=== PATIENT | male | born 1975 | race African-American/Black ===

== ENCOUNTER 2022-12-25 10:29 | Inpatient (IN) | payer OTHER ==
[2022-12-25 10:48] VITALS: BMI 49.4
[2022-12-25] MEDS ORDERED: BENZOCAINE/MENTHOL (CHLORASEPTIC ) LOZENGE MM PRN (11:07)
[2022-12-25] MEDS ORDERED: MAGNESIUM HYDROX 2400MG/30ML ORAL SUSPENSION 30 ML CUP PO PRN (11:07)
[2022-12-25] MEDS ORDERED: NICOTINE 10 MG CARTRIDGE (INHALER) IH PRN (11:07)
[2022-12-25] MEDS ORDERED: NALOXONE HCL 0.4 MG/ML VIAL IM PRN (11:07)
[2022-12-25] MEDS ORDERED: BISMUTH SUBSALICYLATE 524 MG/30 ML PO PRN (11:07)
[2022-12-25] MEDS ORDERED: NALOXONE HCL (KLOXXADO) 8 MG SPRAY NS PRN (11:07)
[2022-12-25] MEDS ORDERED: guaiFENesin 600 MG TABLET.ER (FP) PO PRN (11:07)
[2022-12-25] MEDS ORDERED: POLYETHYLENE GLYCOL (HEALTHYLAX) 3350 17 GM PACKET PO PRN (11:07)
[2022-12-25] MEDS ORDERED: IBUPROFEN 400 MG TABLET (FP) PO PRN (11:07)
[2022-12-25] MEDS ORDERED: BENZONATATE 200 MG CAPSULE PO PRN (11:07)
[2022-12-25] MEDS ORDERED: ONDANSETRON *ODT* 4 MG TABLET SL PRN (11:07)
[2022-12-25] MEDS ORDERED: LOPERAMIDE HCL 2 MG CAPSULE PO PRN (11:07)
[2022-12-25] MEDS ORDERED: IBUPROFEN 600 MG TABLET (FP) PO PRN (11:07)
[2022-12-25] MEDS ORDERED: DICYCLOMINE HCL 10 MG CAPSULE PO PRN (11:07)
[2022-12-25] MEDS ORDERED: ACETAMINOPHEN 325 MG TABLET (FP) PO PRN (11:07)
[2022-12-25] MEDS ORDERED: MAG HYDROX/AL HYDROX/SIMETH 30 ML UNIT-DOSE CUP PO PRN (11:07)
[2022-12-25] MEDS ORDERED: hydrOXYzine PAMOATE 25 MG CAPSULE (FP) PO ONE (11:58)
[2022-12-25] MEDS: hydrOXYzine PAMOATE 25 MG CAPSULE (FP) PO PRN ×2 (11:59→22:23)
[2022-12-25] MEDS: METHOCARBAMOL 500 MG TABLET PO PRN ×2 (12:46→22:23)
[2022-12-25] MEDS: LOSARTAN POTASSIUM 25 MG TABLET PO SCH (12:46)
[2022-12-25] MEDS: amLODIPine BESYLATE 10 MG TABLET (FP) PO SCH (12:46)
[2022-12-25] MEDS: MELATONIN 5 MG TABLETS PO SCH (22:23)
[2022-12-25] MEDS: THIAMINE HCL 100 MG TABLET (FP) PO SCH (22:24)
[2022-12-26] MEDS: ASPIRIN COATED 81 MG TABLET.EC PO SCH (10:19)
[2022-12-26] MEDS: amLODIPine BESYLATE 10 MG TABLET (FP) PO SCH (10:19)
[2022-12-26] MEDS: PRENATAL VITAMINS W/ FOLIC ACID TABLET (FP) PO SCH (10:19)
[2022-12-26] MEDS: LOSARTAN POTASSIUM 25 MG TABLET PO SCH (10:19)
[2022-12-26] MEDS: METHOCARBAMOL 500 MG TABLET PO PRN ×2 (10:21→22:08)
[2022-12-26] MEDS: hydrOXYzine PAMOATE 25 MG CAPSULE (FP) PO PRN (10:21)
[2022-12-26 11:36] LABS: HEMATOCRIT 39.5 % (35.4-49); HEMOGLOBIN 12.7 GM/dL (11.7-16.9); MCH 28.8 pg (25.7-33.7); MCHC 32.1 g/dl (32.0-35.9); MEAN CELL VOLUME 89.7 fl (80-96); MEAN PLT VOLUME 8.8 fl (7.5-11.1); PLATELET COUNT 326 10^3/uL (134-434); RDW 13.9 % (11.9-15.9); WHITE BLOOD COUNT 4.9 K/mm3 (4.0-10.0)
[2022-12-26 11:44] LABS: POTASSIUM 4.2 mmol/L (3.5-5.1)
[2022-12-26 11:50] LABS: ALBUMIN 3.4 g/dl (3.4-5.0); BLOOD UREA NITROGEN 15.6 mg/dL (7-18); CALCIUM 8.8 mg/dL (8.5-10.1)
[2022-12-26 11:56] LABS: BILIRUBIN,TOTAL 0.3 mg/dL (0.2-1); TOT PROT 6.1 g/dl (6.4-8.2)
[2022-12-26] MEDS ORDERED: LORazepam 1 MG TABLET PO PRN (14:16)
[2022-12-26] MEDS: LORazepam 2 MG TABLET PO SCH ×2 (17:11→22:08)
[2022-12-26] MEDS: THIAMINE HCL 100 MG TABLET (FP) PO SCH (22:08)
[2022-12-26] MEDS: MELATONIN 5 MG TABLETS PO SCH (22:08)
[2022-12-27] MEDS: LORazepam 1 MG TABLET PO SCH ×4 (05:29→22:02)
[2022-12-27] MEDS: amLODIPine BESYLATE 10 MG TABLET (FP) PO SCH (09:09)
[2022-12-27] MEDS: ASPIRIN COATED 81 MG TABLET.EC PO SCH (09:09)
[2022-12-27] MEDS: LOSARTAN POTASSIUM 25 MG TABLET PO SCH (09:09)
[2022-12-27] MEDS: PRENATAL VITAMINS W/ FOLIC ACID TABLET (FP) PO SCH (10:09)
[2022-12-27] MEDS: METHOCARBAMOL 500 MG TABLET PO PRN (10:10)
[2022-12-27] MEDS: MELATONIN 5 MG TABLETS PO SCH (22:02)
[2022-12-27] MEDS: THIAMINE HCL 100 MG TABLET (FP) PO SCH (22:02)
[2022-12-28] MEDS ORDERED: LORazepam 0.5 MG TABLET PO PRN
[2022-12-28] MEDS: LORazepam 0.5 MG TABLET PO SCH ×4 (05:24→23:16)
[2022-12-28] MEDS: ASPIRIN COATED 81 MG TABLET.EC PO SCH (10:04)
[2022-12-28] MEDS: LOSARTAN POTASSIUM 25 MG TABLET PO SCH (10:04)
[2022-12-28] MEDS: amLODIPine BESYLATE 10 MG TABLET (FP) PO SCH (10:05)
[2022-12-28] MEDS: PRENATAL VITAMINS W/ FOLIC ACID TABLET (FP) PO SCH (10:05)
[2022-12-28] MEDS ORDERED: cloNIDine HCL 0.1 MG TABLET PO ONE (13:45)
[2022-12-28] MEDS: MELATONIN 5 MG TABLETS PO SCH (23:16)
[2022-12-28] MEDS: THIAMINE HCL 100 MG TABLET (FP) PO SCH (23:17)
[2022-12-29] MEDS ORDERED: LORazepam 0.5 MG TABLET PO ONE (05:00)
[2022-12-29] MEDS: PRENATAL VITAMINS W/ FOLIC ACID TABLET (FP) PO SCH (10:32)
[2022-12-29] MEDS: ASPIRIN COATED 81 MG TABLET.EC PO SCH (10:32)
[2022-12-29] MEDS: amLODIPine BESYLATE 10 MG TABLET (FP) PO SCH (10:32)
[2022-12-29] MEDS: LOSARTAN POTASSIUM 25 MG TABLET PO SCH (10:32)
[2022-12-29] MEDS: METHOCARBAMOL 500 MG TABLET PO PRN (10:33)
[2022-12-29] MEDS: hydrOXYzine PAMOATE 25 MG CAPSULE (FP) PO PRN (10:33)
[2022-12-29 13:05] VITALS: BP 194/99; PULSE 82; RESP 17; TEMP 98.1
== END 2022-12-29 13:55 | disposition other institution (70) | DRG 774 ==
LOC: YASAS 10:29 → Y6N 12:12
PROVIDERS: ADMIT Allergy & Immunology; ATTEND Surgery
PROC: HZ2ZZZZ Detoxification Services for Substance Abuse Treatment (ICD-10-PCS; principal; 2022-12-25)
DX: F14.20 Cocaine dependence, uncomplicated (principal); F10.230 Alcohol dependence with withdrawal, uncomplicated; F17.210 Nicotine dependence, cigarettes, uncomplicated; E78.5 Hyperlipidemia, unspecified; I10 Essential (primary) hypertension; M54.50 Low back pain, unspecified; G89.29 Other chronic pain; E66.01 Morbid (severe) obesity due to excess calories; Z68.42 Body mass index [BMI] 45.0-49.9, adult; Z86.19 Personal history of other infectious and parasitic diseases
CPT/HCPCS: 36415; 80053; 83036; 85027; 86593; 86780; 87635; 87811

== ENCOUNTER 2022-12-29 14:00 | Inpatient (IN) | payer OTHER ==
[2022-12-29] MEDS ORDERED: METHOCARBAMOL 500 MG TABLET PO PRN (17:49)
[2022-12-29] MEDS ORDERED: NALOXONE HCL (KLOXXADO) 8 MG SPRAY NS PRN (17:49)
[2022-12-29] MEDS ORDERED: MAG HYDROX/AL HYDROX/SIMETH 30 ML UNIT-DOSE CUP PO PRN (17:49)
[2022-12-29] MEDS ORDERED: AMMONIUM LACTATE 12% LOTION 225 GM BOTTLE TP PRN (17:49)
[2022-12-29] MEDS ORDERED: LOPERAMIDE HCL 2 MG CAPSULE PO PRN (17:49)
[2022-12-29] MEDS ORDERED: POLYETHYLENE GLYCOL (HEALTHYLAX) 3350 17 GM PACKET PO PRN (17:49)
[2022-12-29] MEDS ORDERED: NALOXONE HCL 0.4 MG/ML VIAL IVPUSH PRN (17:49)
[2022-12-29] MEDS ORDERED: IBUPROFEN 400 MG TABLET (FP) PO PRN (17:49)
[2022-12-29] MEDS ORDERED: guaiFENesin 600 MG TABLET.ER (FP) PO PRN (17:49)
[2022-12-29] MEDS ORDERED: MAGNESIUM HYDROX 2400MG/30ML ORAL SUSPENSION 30 ML CUP PO PRN (17:49)
[2022-12-29] MEDS ORDERED: BENZONATATE 200 MG CAPSULE PO PRN (17:49)
[2022-12-29] MEDS: THIAMINE HCL 100 MG TABLET (FP) PO SCH (21:41)
[2022-12-29] MEDS: MELATONIN 5 MG TABLETS PO SCH (21:41)
[2022-12-30] MEDS: PRENATAL VITAMINS W/ FOLIC ACID TABLET (FP) PO SCH (09:38)
[2022-12-30] MEDS: LOSARTAN POTASSIUM 25 MG TABLET PO SCH (09:39)
[2022-12-30] MEDS: amLODIPine BESYLATE 10 MG TABLET (FP) PO SCH (09:39)
[2022-12-30] MEDS: ASPIRIN COATED 81 MG TABLET.EC PO SCH (09:39)
[2022-12-30] MEDS: THIAMINE HCL 100 MG TABLET (FP) PO SCH (21:08)
[2022-12-30] MEDS: MELATONIN 5 MG TABLETS PO SCH (21:08)
[2022-12-31] MEDS: ASPIRIN COATED 81 MG TABLET.EC PO SCH (09:42)
[2022-12-31] MEDS: LOSARTAN POTASSIUM 25 MG TABLET PO SCH (09:42)
[2022-12-31] MEDS: PRENATAL VITAMINS W/ FOLIC ACID TABLET (FP) PO SCH (09:42)
[2022-12-31] MEDS: amLODIPine BESYLATE 10 MG TABLET (FP) PO SCH (09:42)
[2022-12-31] MEDS: MELATONIN 5 MG TABLETS PO SCH (21:15)
[2022-12-31] MEDS: THIAMINE HCL 100 MG TABLET (FP) PO SCH (21:16)
[2022-12-31] MEDS ORDERED: traZODone HCL 50 MG TABLET (FP) PO SCH (22:00)
[2023-01-01] MEDS: PRENATAL VITAMINS W/ FOLIC ACID TABLET (FP) PO SCH (09:50)
[2023-01-01] MEDS: amLODIPine BESYLATE 10 MG TABLET (FP) PO SCH (09:50)
[2023-01-01] MEDS: LOSARTAN POTASSIUM 25 MG TABLET PO SCH (09:50)
[2023-01-01] MEDS: ASPIRIN COATED 81 MG TABLET.EC PO SCH (09:50)
[2023-01-01] MEDS: THIAMINE HCL 100 MG TABLET (FP) PO SCH (21:02)
[2023-01-01] MEDS: MELATONIN 5 MG TABLETS PO SCH (21:02)
[2023-01-01] MEDS: traZODone HCL 100 MG TABLET (FP) PO SCH (21:02)
[2023-01-02] MEDS: PRENATAL VITAMINS W/ FOLIC ACID TABLET (FP) PO SCH (09:37)
[2023-01-02] MEDS: LOSARTAN POTASSIUM 25 MG TABLET PO SCH (09:37)
[2023-01-02] MEDS: ASPIRIN COATED 81 MG TABLET.EC PO SCH (09:37)
[2023-01-02] MEDS: amLODIPine BESYLATE 10 MG TABLET (FP) PO SCH (09:37)
[2023-01-02] MEDS: THIAMINE HCL 100 MG TABLET (FP) PO SCH (21:12)
[2023-01-02] MEDS: MELATONIN 5 MG TABLETS PO SCH (21:12)
[2023-01-02] MEDS: traZODone HCL 100 MG TABLET (FP) PO SCH (21:12)
[2023-01-03] MEDS: amLODIPine BESYLATE 10 MG TABLET (FP) PO SCH (09:37)
[2023-01-03] MEDS: LOSARTAN POTASSIUM 25 MG TABLET PO SCH (09:37)
[2023-01-03] MEDS: ASPIRIN COATED 81 MG TABLET.EC PO SCH (09:37)
[2023-01-03] MEDS: PRENATAL VITAMINS W/ FOLIC ACID TABLET (FP) PO SCH (09:37)
[2023-01-03] MEDS: MELATONIN 5 MG TABLETS PO SCH (21:19)
[2023-01-03] MEDS: THIAMINE HCL 100 MG TABLET (FP) PO SCH (21:19)
[2023-01-03] MEDS: traZODone HCL 100 MG TABLET (FP) PO SCH (21:19)
[2023-01-04] MEDS: LOSARTAN POTASSIUM 25 MG TABLET PO SCH (09:55)
[2023-01-04] MEDS: PRENATAL VITAMINS W/ FOLIC ACID TABLET (FP) PO SCH (09:55)
[2023-01-04] MEDS: ASPIRIN COATED 81 MG TABLET.EC PO SCH (09:56)
[2023-01-04] MEDS: amLODIPine BESYLATE 10 MG TABLET (FP) PO SCH (09:56)
[2023-01-04] MEDS: hydrOXYzine PAMOATE 25 MG CAPSULE (FP) PO PRN (19:22)
[2023-01-04] MEDS: MELATONIN 5 MG TABLETS PO SCH (21:18)
[2023-01-04] MEDS: THIAMINE HCL 100 MG TABLET (FP) PO SCH (21:18)
[2023-01-04] MEDS: traZODone HCL 50 MG TABLET (FP) PO SCH (21:18)
[2023-01-04] MEDS ORDERED: LISINOPRIL 10 MG TABLET PO ONE (21:51)
[2023-01-05] MEDS: PRENATAL VITAMINS W/ FOLIC ACID TABLET (FP) PO SCH (09:40)
[2023-01-05] MEDS: amLODIPine BESYLATE 10 MG TABLET (FP) PO SCH (09:40)
[2023-01-05] MEDS: ASPIRIN COATED 81 MG TABLET.EC PO SCH (09:40)
[2023-01-05] MEDS: LOSARTAN POTASSIUM 25 MG TABLET PO SCH (09:40)
[2023-01-05] MEDS: hydrOXYzine PAMOATE 25 MG CAPSULE (FP) PO PRN (19:10)
[2023-01-05] MEDS: THIAMINE HCL 100 MG TABLET (FP) PO SCH (21:15)
[2023-01-05] MEDS: MELATONIN 5 MG TABLETS PO SCH (21:15)
[2023-01-05] MEDS: traZODone HCL 50 MG TABLET (FP) PO SCH (21:15)
[2023-01-05] MEDS: LISINOPRIL 10 MG TABLET PO SCH (22:35)
[2023-01-06] MEDS: ASPIRIN COATED 81 MG TABLET.EC PO SCH (09:43)
[2023-01-06] MEDS: PRENATAL VITAMINS W/ FOLIC ACID TABLET (FP) PO SCH (09:43)
[2023-01-06] MEDS: LOSARTAN POTASSIUM 25 MG TABLET PO SCH (09:43)
[2023-01-06] MEDS: amLODIPine BESYLATE 10 MG TABLET (FP) PO SCH (09:43)
[2023-01-06] MEDS: traZODone HCL 50 MG TABLET (FP) PO SCH (21:08)
[2023-01-06] MEDS: LISINOPRIL 10 MG TABLET PO SCH (21:09)
[2023-01-06] MEDS: THIAMINE HCL 100 MG TABLET (FP) PO SCH (21:09)
[2023-01-06] MEDS: MELATONIN 5 MG TABLETS PO SCH (21:09)
[2023-01-07] MEDS: PRENATAL VITAMINS W/ FOLIC ACID TABLET (FP) PO SCH (09:50)
[2023-01-07] MEDS: amLODIPine BESYLATE 10 MG TABLET (FP) PO SCH (09:51)
[2023-01-07] MEDS: ASPIRIN COATED 81 MG TABLET.EC PO SCH (09:51)
[2023-01-07] MEDS: LOSARTAN POTASSIUM 25 MG TABLET PO SCH (09:51)
[2023-01-07] MEDS: P-EPHED 60MG/TRIPROLIDI 2.5MG TABLET PO PRN (21:14)
[2023-01-07] MEDS: traZODone HCL 50 MG TABLET (FP) PO SCH (21:15)
[2023-01-07] MEDS: THIAMINE HCL 100 MG TABLET (FP) PO SCH (21:15)
[2023-01-07] MEDS: LISINOPRIL 10 MG TABLET PO SCH (21:15)
[2023-01-07] MEDS: MELATONIN 5 MG TABLETS PO SCH (21:15)
[2023-01-08] MEDS: P-EPHED 60MG/TRIPROLIDI 2.5MG TABLET PO PRN ×2 (06:21→16:36)
[2023-01-08] MEDS: PRENATAL VITAMINS W/ FOLIC ACID TABLET (FP) PO SCH (09:39)
[2023-01-08] MEDS: amLODIPine BESYLATE 10 MG TABLET (FP) PO SCH (09:39)
[2023-01-08] MEDS: LOSARTAN POTASSIUM 25 MG TABLET PO SCH (09:39)
[2023-01-08] MEDS: ASPIRIN COATED 81 MG TABLET.EC PO SCH (09:39)
[2023-01-08] MEDS: BENZOCAINE/MENTHOL (CHLORASEPTIC ) LOZENGE MM PRN (16:35)
[2023-01-08] MEDS: MELATONIN 5 MG TABLETS PO SCH (21:15)
[2023-01-08] MEDS: traZODone HCL 50 MG TABLET (FP) PO SCH (21:15)
[2023-01-08] MEDS: LISINOPRIL 10 MG TABLET PO SCH (21:16)
[2023-01-08] MEDS: THIAMINE HCL 100 MG TABLET (FP) PO SCH (21:16)
[2023-01-09] MEDS: P-EPHED 60MG/TRIPROLIDI 2.5MG TABLET PO PRN ×2 (06:12→21:10)
[2023-01-09] MEDS: BENZOCAINE/MENTHOL (CHLORASEPTIC ) LOZENGE MM PRN ×2 (06:13→09:45)
[2023-01-09] MEDS: PRENATAL VITAMINS W/ FOLIC ACID TABLET (FP) PO SCH (09:44)
[2023-01-09] MEDS: amLODIPine BESYLATE 10 MG TABLET (FP) PO SCH (09:44)
[2023-01-09] MEDS: ASPIRIN COATED 81 MG TABLET.EC PO SCH (09:44)
[2023-01-09] MEDS: LOSARTAN POTASSIUM 25 MG TABLET PO SCH (09:44)
[2023-01-09] MEDS: MELATONIN 5 MG TABLETS PO SCH (21:08)
[2023-01-09] MEDS: THIAMINE HCL 100 MG TABLET (FP) PO SCH (21:08)
[2023-01-09] MEDS: traZODone HCL 50 MG TABLET (FP) PO SCH (21:08)
[2023-01-09] MEDS: LISINOPRIL 10 MG TABLET PO SCH (21:08)
[2023-01-10] MEDS: BENZOCAINE/MENTHOL (CHLORASEPTIC ) LOZENGE MM PRN ×2 (06:58→16:52)
[2023-01-10] MEDS: P-EPHED 60MG/TRIPROLIDI 2.5MG TABLET PO PRN ×3 (06:59→21:22)
[2023-01-10] MEDS: amLODIPine BESYLATE 10 MG TABLET (FP) PO SCH (09:39)
[2023-01-10] MEDS: ASPIRIN COATED 81 MG TABLET.EC PO SCH (09:39)
[2023-01-10] MEDS: LOSARTAN POTASSIUM 25 MG TABLET PO SCH (09:39)
[2023-01-10] MEDS: PRENATAL VITAMINS W/ FOLIC ACID TABLET (FP) PO SCH (09:39)
[2023-01-10] MEDS: ACETAMINOPHEN 325 MG TABLET (FP) PO PRN (16:51)
[2023-01-10] MEDS: traZODone HCL 50 MG TABLET (FP) PO SCH (21:21)
[2023-01-10] MEDS: THIAMINE HCL 100 MG TABLET (FP) PO SCH (21:22)
[2023-01-10] MEDS: LISINOPRIL 10 MG TABLET PO SCH (21:22)
[2023-01-10] MEDS: MELATONIN 5 MG TABLETS PO SCH (21:23)
[2023-01-11] MEDS: BENZOCAINE/MENTHOL (CHLORASEPTIC ) LOZENGE MM PRN ×2 (06:17→21:08)
[2023-01-11] MEDS: P-EPHED 60MG/TRIPROLIDI 2.5MG TABLET PO PRN ×2 (06:19→21:06)
[2023-01-11] MEDS: ACETAMINOPHEN 325 MG TABLET (FP) PO PRN (06:20)
[2023-01-11] MEDS: amLODIPine BESYLATE 10 MG TABLET (FP) PO SCH (09:33)
[2023-01-11] MEDS: ASPIRIN COATED 81 MG TABLET.EC PO SCH (09:33)
[2023-01-11] MEDS: PRENATAL VITAMINS W/ FOLIC ACID TABLET (FP) PO SCH (09:33)
[2023-01-11] MEDS: LOSARTAN POTASSIUM 25 MG TABLET PO SCH (09:33)
[2023-01-11] MEDS: traZODone HCL 50 MG TABLET (FP) PO SCH (21:05)
[2023-01-11] MEDS: MELATONIN 5 MG TABLETS PO SCH (21:05)
[2023-01-11] MEDS: LISINOPRIL 10 MG TABLET PO SCH (21:05)
[2023-01-11] MEDS: THIAMINE HCL 100 MG TABLET (FP) PO SCH (21:05)
[2023-01-12] MEDS: P-EPHED 60MG/TRIPROLIDI 2.5MG TABLET PO PRN ×2 (07:04→21:09)
[2023-01-12] MEDS: PRENATAL VITAMINS W/ FOLIC ACID TABLET (FP) PO SCH (09:51)
[2023-01-12] MEDS: ASPIRIN COATED 81 MG TABLET.EC PO SCH (09:51)
[2023-01-12] MEDS: amLODIPine BESYLATE 10 MG TABLET (FP) PO SCH (09:51)
[2023-01-12] MEDS: BENZOCAINE/MENTHOL (CHLORASEPTIC ) LOZENGE MM PRN (09:51)
[2023-01-12] MEDS: LOSARTAN POTASSIUM 25 MG TABLET PO SCH (09:51)
[2023-01-12] MEDS: traZODone HCL 50 MG TABLET (FP) PO SCH (21:07)
[2023-01-12] MEDS: LISINOPRIL 10 MG TABLET PO SCH (21:07)
[2023-01-12] MEDS: MELATONIN 5 MG TABLETS PO SCH (21:07)
[2023-01-12] MEDS: THIAMINE HCL 100 MG TABLET (FP) PO SCH (21:07)
[2023-01-13] MEDS: PRENATAL VITAMINS W/ FOLIC ACID TABLET (FP) PO SCH (09:55)
[2023-01-13] MEDS: LOSARTAN POTASSIUM 25 MG TABLET PO SCH (09:56)
[2023-01-13] MEDS: amLODIPine BESYLATE 10 MG TABLET (FP) PO SCH (09:56)
[2023-01-13] MEDS: ASPIRIN COATED 81 MG TABLET.EC PO SCH (09:56)
[2023-01-13] MEDS: BENZOCAINE/MENTHOL (CHLORASEPTIC ) LOZENGE MM PRN (09:57)
[2023-01-13] MEDS: LISINOPRIL 10 MG TABLET PO SCH (21:05)
[2023-01-13] MEDS: MELATONIN 5 MG TABLETS PO SCH (21:05)
[2023-01-13] MEDS: THIAMINE HCL 100 MG TABLET (FP) PO SCH (21:05)
[2023-01-13] MEDS: traZODone HCL 50 MG TABLET (FP) PO SCH (21:06)
[2023-01-14] MEDS: amLODIPine BESYLATE 10 MG TABLET (FP) PO SCH (10:01)
[2023-01-14] MEDS: ASPIRIN COATED 81 MG TABLET.EC PO SCH (10:01)
[2023-01-14] MEDS: hydrOXYzine PAMOATE 25 MG CAPSULE (FP) PO PRN (10:01)
[2023-01-14] MEDS: PRENATAL VITAMINS W/ FOLIC ACID TABLET (FP) PO SCH (10:01)
[2023-01-14] MEDS: LOSARTAN POTASSIUM 25 MG TABLET PO SCH (10:01)
[2023-01-14] MEDS: MELATONIN 5 MG TABLETS PO SCH (21:47)
[2023-01-14] MEDS: traZODone HCL 50 MG TABLET (FP) PO SCH (21:48)
[2023-01-14] MEDS: LISINOPRIL 10 MG TABLET PO SCH (21:48)
[2023-01-14] MEDS: THIAMINE HCL 100 MG TABLET (FP) PO SCH (21:48)
[2023-01-15] MEDS: ASPIRIN COATED 81 MG TABLET.EC PO SCH (09:50)
[2023-01-15] MEDS: PRENATAL VITAMINS W/ FOLIC ACID TABLET (FP) PO SCH (09:50)
[2023-01-15] MEDS: LOSARTAN POTASSIUM 25 MG TABLET PO SCH (09:51)
[2023-01-15] MEDS: amLODIPine BESYLATE 10 MG TABLET (FP) PO SCH (09:51)
[2023-01-15] MEDS: LISINOPRIL 10 MG TABLET PO SCH (21:07)
[2023-01-15] MEDS: traZODone HCL 50 MG TABLET (FP) PO SCH (21:07)
[2023-01-15] MEDS: MELATONIN 5 MG TABLETS PO SCH (21:07)
[2023-01-15] MEDS: THIAMINE HCL 100 MG TABLET (FP) PO SCH (21:08)
[2023-01-16] MEDS: PRENATAL VITAMINS W/ FOLIC ACID TABLET (FP) PO SCH (09:37)
[2023-01-16] MEDS: ASPIRIN COATED 81 MG TABLET.EC PO SCH (09:37)
[2023-01-16] MEDS: amLODIPine BESYLATE 10 MG TABLET (FP) PO SCH (09:37)
[2023-01-16] MEDS: LOSARTAN POTASSIUM 25 MG TABLET PO SCH (09:37)
[2023-01-16] MEDS: LISINOPRIL 10 MG TABLET PO SCH (21:29)
[2023-01-16] MEDS: MELATONIN 5 MG TABLETS PO SCH (21:29)
[2023-01-16] MEDS: traZODone HCL 50 MG TABLET (FP) PO SCH (21:29)
[2023-01-16] MEDS: THIAMINE HCL 100 MG TABLET (FP) PO SCH (21:29)
[2023-01-16] MEDS: COLLOIDAL OATMEAL 1 BAR EACH TP PRN (21:30)
[2023-01-17] MEDS: PRENATAL VITAMINS W/ FOLIC ACID TABLET (FP) PO SCH (09:45)
[2023-01-17] MEDS: amLODIPine BESYLATE 10 MG TABLET (FP) PO SCH (09:46)
[2023-01-17] MEDS: ASPIRIN COATED 81 MG TABLET.EC PO SCH (09:46)
[2023-01-17] MEDS: LOSARTAN POTASSIUM 25 MG TABLET PO SCH (09:46)
[2023-01-17] MEDS: hydrOXYzine PAMOATE 25 MG CAPSULE (FP) PO PRN (09:47)
[2023-01-17] MEDS: THIAMINE HCL 100 MG TABLET (FP) PO SCH (21:16)
[2023-01-17] MEDS: LISINOPRIL 10 MG TABLET PO SCH (21:16)
[2023-01-17] MEDS: traZODone HCL 50 MG TABLET (FP) PO SCH (21:16)
[2023-01-17] MEDS: MELATONIN 5 MG TABLETS PO SCH (21:16)
[2023-01-18] MEDS: PRENATAL VITAMINS W/ FOLIC ACID TABLET (FP) PO SCH (09:57)
[2023-01-18] MEDS: ASPIRIN COATED 81 MG TABLET.EC PO SCH (09:57)
[2023-01-18] MEDS: amLODIPine BESYLATE 10 MG TABLET (FP) PO SCH (09:57)
[2023-01-18] MEDS: LOSARTAN POTASSIUM 25 MG TABLET PO SCH (09:57)
[2023-01-18] MEDS: hydrOXYzine PAMOATE 25 MG CAPSULE (FP) PO PRN (18:20)
[2023-01-18] MEDS: traZODone HCL 50 MG TABLET (FP) PO SCH (21:24)
[2023-01-18] MEDS: MELATONIN 5 MG TABLETS PO SCH (21:24)
[2023-01-18] MEDS: THIAMINE HCL 100 MG TABLET (FP) PO SCH (21:24)
[2023-01-18] MEDS: LISINOPRIL 10 MG TABLET PO SCH (21:24)
[2023-01-19] MEDS: PRENATAL VITAMINS W/ FOLIC ACID TABLET (FP) PO SCH (09:50)
[2023-01-19] MEDS: amLODIPine BESYLATE 10 MG TABLET (FP) PO SCH (09:50)
[2023-01-19] MEDS: hydrOXYzine PAMOATE 25 MG CAPSULE (FP) PO PRN (09:50)
[2023-01-19] MEDS: ASPIRIN COATED 81 MG TABLET.EC PO SCH (09:50)
[2023-01-19] MEDS: LOSARTAN POTASSIUM 25 MG TABLET PO SCH (09:50)
[2023-01-19] MEDS: IBUPROFEN 600 MG TABLET (FP) PO PRN (21:07)
[2023-01-19] MEDS: THIAMINE HCL 100 MG TABLET (FP) PO SCH (21:07)
[2023-01-19] MEDS: MELATONIN 5 MG TABLETS PO SCH (21:07)
[2023-01-19] MEDS: traZODone HCL 50 MG TABLET (FP) PO SCH (21:07)
[2023-01-19] MEDS: LISINOPRIL 10 MG TABLET PO SCH (21:07)
[2023-01-20] MEDS: hydrOXYzine PAMOATE 25 MG CAPSULE (FP) PO PRN (09:52)
[2023-01-20] MEDS: PRENATAL VITAMINS W/ FOLIC ACID TABLET (FP) PO SCH (09:52)
[2023-01-20] MEDS: LOSARTAN POTASSIUM 25 MG TABLET PO SCH (09:53)
[2023-01-20] MEDS: ASPIRIN COATED 81 MG TABLET.EC PO SCH (09:53)
[2023-01-20] MEDS: amLODIPine BESYLATE 10 MG TABLET (FP) PO SCH (09:53)
[2023-01-20] MEDS: MELATONIN 5 MG TABLETS PO SCH (21:15)
[2023-01-20] MEDS: THIAMINE HCL 100 MG TABLET (FP) PO SCH (21:16)
[2023-01-20] MEDS: traZODone HCL 50 MG TABLET (FP) PO SCH (21:16)
[2023-01-20] MEDS: LISINOPRIL 10 MG TABLET PO SCH (21:16)
[2023-01-21] MEDS: ASPIRIN COATED 81 MG TABLET.EC PO SCH (09:51)
[2023-01-21] MEDS: LOSARTAN POTASSIUM 25 MG TABLET PO SCH (09:51)
[2023-01-21] MEDS: amLODIPine BESYLATE 10 MG TABLET (FP) PO SCH (09:51)
[2023-01-21] MEDS: PRENATAL VITAMINS W/ FOLIC ACID TABLET (FP) PO SCH (09:51)
[2023-01-21] MEDS: LISINOPRIL 10 MG TABLET PO SCH (21:20)
[2023-01-21] MEDS: MELATONIN 5 MG TABLETS PO SCH (21:20)
[2023-01-21] MEDS: traZODone HCL 50 MG TABLET (FP) PO SCH (21:20)
[2023-01-21] MEDS: THIAMINE HCL 100 MG TABLET (FP) PO SCH (21:20)
[2023-01-22] MEDS: PRENATAL VITAMINS W/ FOLIC ACID TABLET (FP) PO SCH (09:43)
[2023-01-22] MEDS: amLODIPine BESYLATE 10 MG TABLET (FP) PO SCH (09:43)
[2023-01-22] MEDS: ASPIRIN COATED 81 MG TABLET.EC PO SCH (09:43)
[2023-01-22] MEDS: LOSARTAN POTASSIUM 25 MG TABLET PO SCH (09:43)
[2023-01-22] MEDS: hydrOXYzine PAMOATE 25 MG CAPSULE (FP) PO PRN (18:30)
[2023-01-22] MEDS: LISINOPRIL 10 MG TABLET PO SCH (21:24)
[2023-01-22] MEDS: MELATONIN 5 MG TABLETS PO SCH (21:24)
[2023-01-22] MEDS: traZODone HCL 50 MG TABLET (FP) PO SCH (21:24)
[2023-01-22] MEDS: THIAMINE HCL 100 MG TABLET (FP) PO SCH (21:24)
[2023-01-23] MEDS: PRENATAL VITAMINS W/ FOLIC ACID TABLET (FP) PO SCH (09:52)
[2023-01-23] MEDS: ASPIRIN COATED 81 MG TABLET.EC PO SCH (09:53)
[2023-01-23] MEDS: LOSARTAN POTASSIUM 25 MG TABLET PO SCH (09:53)
[2023-01-23] MEDS: amLODIPine BESYLATE 10 MG TABLET (FP) PO SCH (09:53)
[2023-01-23] MEDS: traZODone HCL 50 MG TABLET (FP) PO SCH (21:12)
[2023-01-23] MEDS: THIAMINE HCL 100 MG TABLET (FP) PO SCH (21:12)
[2023-01-23] MEDS: hydrOXYzine PAMOATE 25 MG CAPSULE (FP) PO PRN (21:12)
[2023-01-23] MEDS: LISINOPRIL 10 MG TABLET PO SCH (21:12)
[2023-01-23] MEDS: MELATONIN 5 MG TABLETS PO SCH (21:12)
[2023-01-24 07:02] VITALS: RESP 18
[2023-01-24] MEDS: PRENATAL VITAMINS W/ FOLIC ACID TABLET (FP) PO SCH (09:51)
[2023-01-24] MEDS: ASPIRIN COATED 81 MG TABLET.EC PO SCH (09:51)
[2023-01-24] MEDS: amLODIPine BESYLATE 10 MG TABLET (FP) PO SCH (09:51)
[2023-01-24] MEDS: hydrOXYzine PAMOATE 25 MG CAPSULE (FP) PO PRN ×2 (09:52→21:06)
[2023-01-24] MEDS: LOSARTAN POTASSIUM 25 MG TABLET PO SCH (09:52)
[2023-01-24] MEDS: IBUPROFEN 600 MG TABLET (FP) PO PRN (21:05)
[2023-01-24] MEDS: THIAMINE HCL 100 MG TABLET (FP) PO SCH (21:06)
[2023-01-24] MEDS: traZODone HCL 50 MG TABLET (FP) PO SCH (21:06)
[2023-01-24] MEDS: MELATONIN 5 MG TABLETS PO SCH (21:06)
[2023-01-24] MEDS: LISINOPRIL 10 MG TABLET PO SCH (21:06)
[2023-01-25] MEDS: COLLOIDAL OATMEAL 1 BAR EACH TP PRN (06:39)
[2023-01-25] MEDS: ASPIRIN COATED 81 MG TABLET.EC PO SCH (09:40)
[2023-01-25] MEDS: PRENATAL VITAMINS W/ FOLIC ACID TABLET (FP) PO SCH (09:40)
[2023-01-25] MEDS: LOSARTAN POTASSIUM 25 MG TABLET PO SCH (09:40)
[2023-01-25] MEDS: amLODIPine BESYLATE 10 MG TABLET (FP) PO SCH (09:40)
[2023-01-25] MEDS: THIAMINE HCL 100 MG TABLET (FP) PO SCH (21:09)
[2023-01-25] MEDS: traZODone HCL 50 MG TABLET (FP) PO SCH (21:09)
[2023-01-25] MEDS: MELATONIN 5 MG TABLETS PO SCH (21:09)
[2023-01-25] MEDS: LISINOPRIL 10 MG TABLET PO SCH (21:09)
[2023-01-25] MEDS: ACETAMINOPHEN 325 MG TABLET (FP) PO PRN (21:10)
[2023-01-26 06:50] VITALS: TEMP 97.9
[2023-01-26] MEDS: PRENATAL VITAMINS W/ FOLIC ACID TABLET (FP) PO SCH (09:12)
[2023-01-26] MEDS: ASPIRIN COATED 81 MG TABLET.EC PO SCH (09:12)
[2023-01-26] MEDS: LOSARTAN POTASSIUM 25 MG TABLET PO SCH (09:12)
[2023-01-26] MEDS: amLODIPine BESYLATE 10 MG TABLET (FP) PO SCH (09:12)
[2023-01-26 09:42] VITALS: BP 150/85; PULSE 88
== END 2023-01-26 10:00 | disposition home or self-care (01) | DRG 772 ==
LOC: YASAS 14:00 → Y5N 14:01
PROVIDERS: ADMIT Allergy & Immunology; ATTEND Psychiatry & Neurology Pain Medicine
PROC: HZ42ZZZ Group Counseling for Substance Abuse Treatment, Cognitive-Behavioral (ICD-10-PCS; principal; 2022-12-29)
DX: F10.20 Alcohol dependence, uncomplicated (principal); F14.20 Cocaine dependence, uncomplicated; F12.20 Cannabis dependence, uncomplicated; F17.210 Nicotine dependence, cigarettes, uncomplicated; F19.282 Other psychoactive substance dependence with psychoactive substance-induced sleep disorder; E78.5 Hyperlipidemia, unspecified; G47.00 Insomnia, unspecified; I10 Essential (primary) hypertension; M54.50 Low back pain, unspecified; G89.29 Other chronic pain; Z86.19 Personal history of other infectious and parasitic diseases; E66.01 Morbid (severe) obesity due to excess calories; Z68.43 Body mass index [BMI] 50.0-59.9, adult

== ENCOUNTER 2023-03-11 14:51 | Inpatient (IN) | payer OTHER ==
[2023-03-11 16:33] VITALS: BMI 55.9
[2023-03-11] MEDS ORDERED: LOPERAMIDE HCL 2 MG CAPSULE PO PRN (18:30)
[2023-03-11] MEDS ORDERED: BISMUTH SUBSALICYLATE 524 MG/30 ML PO PRN (18:30)
[2023-03-11] MEDS ORDERED: POLYETHYLENE GLYCOL (HEALTHYLAX) 3350 17 GM PACKET PO PRN (18:30)
[2023-03-11] MEDS ORDERED: MAGNESIUM HYDROX 2400MG/30ML ORAL SUSPENSION 30 ML CUP PO PRN (18:30)
[2023-03-11] MEDS ORDERED: ASPIRIN COATED 81 MG TABLET.EC PO SCH (18:30)
[2023-03-11] MEDS ORDERED: MAG HYDROX/AL HYDROX/SIMETH 30 ML UNIT-DOSE CUP PO PRN (18:30)
[2023-03-11] MEDS ORDERED: amLODIPine BESYLATE 10 MG TABLET (FP) PO SCH (18:30)
[2023-03-11] MEDS ORDERED: IBUPROFEN 400 MG TABLET (FP) PO PRN (18:30)
[2023-03-11] MEDS ORDERED: ACETAMINOPHEN 325 MG TABLET (FP) PO PRN (18:30)
[2023-03-11] MEDS ORDERED: DICYCLOMINE HCL 10 MG CAPSULE PO PRN (18:30)
[2023-03-11] MEDS ORDERED: hydrOXYzine PAMOATE 25 MG CAPSULE (FP) PO PRN (18:30)
[2023-03-11] MEDS ORDERED: ONDANSETRON *ODT* 4 MG TABLET SL PRN (18:30)
[2023-03-11] MEDS ORDERED: IBUPROFEN 600 MG TABLET (FP) PO PRN (18:30)
[2023-03-11] MEDS ORDERED: BENZOCAINE/MENTHOL (CHLORASEPTIC ) LOZENGE MM PRN (18:30)
[2023-03-11] MEDS ORDERED: BENZONATATE 200 MG CAPSULE PO PRN (18:30)
[2023-03-11] MEDS ORDERED: guaiFENesin 600 MG TABLET.ER (FP) PO PRN (18:30)
[2023-03-11] MEDS ORDERED: P-EPHED 60MG/TRIPROLIDI 2.5MG TABLET PO PRN (18:30)
[2023-03-11] MEDS ORDERED: METHOCARBAMOL 500 MG TABLET PO PRN (18:30)
[2023-03-11] MEDS: amLODIPine BESYLATE 10 MG TABLET (FP) PO SCH (21:38)
[2023-03-11] MEDS: ASPIRIN COATED 81 MG TABLET.EC PO SCH (21:38)
[2023-03-11] MEDS: MELATONIN 5 MG TABLETS PO SCH (22:18)
[2023-03-11] MEDS: THIAMINE HCL 100 MG TABLET (FP) PO SCH (22:19)
[2023-03-12] MEDS: LISINOPRIL 10 MG TABLET PO SCH ×2 (00:04→22:26)
[2023-03-12] MEDS: LOSARTAN POTASSIUM 25 MG TABLET PO SCH ×2 (07:31→10:12)
[2023-03-12] MEDS: PRENATAL VITAMINS W/ FOLIC ACID TABLET (FP) PO SCH (10:11)
[2023-03-12] MEDS: amLODIPine BESYLATE 10 MG TABLET (FP) PO SCH (10:12)
[2023-03-12] MEDS: ASPIRIN COATED 81 MG TABLET.EC PO SCH (10:12)
[2023-03-12 10:40] LABS: POTASSIUM 3.9 mmol/L (3.5-5.1)
[2023-03-12 10:47] LABS: ALBUMIN 3.6 g/dl (3.4-5.0); BLOOD UREA NITROGEN 20.8 mg/dL (7-18); CALCIUM 9.2 mg/dL (8.5-10.1)
[2023-03-12 10:48] LABS: HEMATOCRIT 39.5 % (35.4-49); HEMOGLOBIN 12.5 GM/dL (11.7-16.9); MCH 28.2 pg (25.7-33.7); MCHC 31.7 g/dl (32.0-35.9); MEAN CELL VOLUME 88.9 fl (80-96); MEAN PLT VOLUME 9.2 fl (7.5-11.1); PLATELET COUNT 292 10^3/uL (134-434); RBC 4.45 M/mm3 (4.00-5.60); RDW 14.2 % (11.9-15.9); WHITE BLOOD COUNT 5.6 K/mm3 (4.0-10.0)
[2023-03-12 10:51] LABS: BILIRUBIN,TOTAL 0.6 mg/dL (0.2-1); CREATININE 1.4 mg/dL (0.55-1.3); TOT PROT 6.4 g/dl (6.4-8.2)
[2023-03-12 21:05] VITALS: RESP 18
[2023-03-12] MEDS: MELATONIN 5 MG TABLETS PO SCH (22:26)
[2023-03-12] MEDS: THIAMINE HCL 100 MG TABLET (FP) PO SCH (22:26)
[2023-03-13] MEDS: ASPIRIN COATED 81 MG TABLET.EC PO SCH (10:06)
[2023-03-13] MEDS: PRENATAL VITAMINS W/ FOLIC ACID TABLET (FP) PO SCH (10:06)
[2023-03-13] MEDS: amLODIPine BESYLATE 10 MG TABLET (FP) PO SCH (10:06)
[2023-03-13] MEDS: LOSARTAN POTASSIUM 25 MG TABLET PO SCH (11:02)
[2023-03-13 13:17] VITALS: BP 126/61; PULSE 79; TEMP 98.7
== END 2023-03-13 13:18 | disposition other institution (70) | DRG 774 ==
LOC: YASAS 14:51 → Y6N 18:48
PROVIDERS: ADMIT Allergy & Immunology; ATTEND Surgery
PROC: HZ2ZZZZ Detoxification Services for Substance Abuse Treatment (ICD-10-PCS; principal; 2023-03-11)
DX: F10.20 Alcohol dependence, uncomplicated (principal); F14.20 Cocaine dependence, uncomplicated; F17.210 Nicotine dependence, cigarettes, uncomplicated; I10 Essential (primary) hypertension; E66.01 Morbid (severe) obesity due to excess calories; Z68.43 Body mass index [BMI] 50.0-59.9, adult; Z86.19 Personal history of other infectious and parasitic diseases
CPT/HCPCS: 36415; 80053; 85027; 86593; 86780; 87635; 87811; 93005; 93010

== ENCOUNTER 2023-03-13 14:44 | Inpatient (IN) | payer OTHER ==
[2023-03-13] MEDS ORDERED: AMMONIUM LACTATE 12% LOTION 225 GM BOTTLE TP PRN (15:58)
[2023-03-13] MEDS ORDERED: guaiFENesin 600 MG TABLET.ER (FP) PO PRN (15:58)
[2023-03-13] MEDS ORDERED: IBUPROFEN 400 MG TABLET (FP) PO PRN (15:58)
[2023-03-13] MEDS ORDERED: MAG HYDROX/AL HYDROX/SIMETH 30 ML UNIT-DOSE CUP PO PRN (15:58)
[2023-03-13] MEDS ORDERED: POLYETHYLENE GLYCOL (HEALTHYLAX) 3350 17 GM PACKET PO PRN (15:58)
[2023-03-13] MEDS ORDERED: NICOTINE POLACRILEX 2 MG GUM BUC PRN (15:58)
[2023-03-13] MEDS ORDERED: ACETAMINOPHEN 325 MG TABLET (FP) PO PRN (15:58)
[2023-03-13] MEDS ORDERED: LOPERAMIDE HCL 2 MG CAPSULE PO PRN (15:58)
[2023-03-13] MEDS ORDERED: BENZONATATE 200 MG CAPSULE PO PRN (15:58)
[2023-03-13] MEDS ORDERED: METHOCARBAMOL 500 MG TABLET PO PRN (15:58)
[2023-03-13] MEDS ORDERED: MAGNESIUM HYDROX 2400MG/30ML ORAL SUSPENSION 30 ML CUP PO PRN (15:58)
[2023-03-13] MEDS ORDERED: NICOTINE 7 MG/24 HOURS TOPICAL PATCH TD PRN (15:58)
[2023-03-13] MEDS: THIAMINE HCL 100 MG TABLET (FP) PO SCH (21:31)
[2023-03-13] MEDS: MELATONIN 5 MG TABLETS PO SCH (21:31)
[2023-03-13] MEDS: LISINOPRIL 10 MG TABLET PO SCH (21:32)
[2023-03-14] MEDS: LOSARTAN POTASSIUM 25 MG TABLET PO SCH (09:40)
[2023-03-14] MEDS: amLODIPine BESYLATE 10 MG TABLET (FP) PO SCH (09:40)
[2023-03-14] MEDS: PRENATAL VITAMINS W/ FOLIC ACID TABLET (FP) PO SCH (09:40)
[2023-03-14] MEDS: ASPIRIN COATED 81 MG TABLET.EC PO SCH (09:40)
[2023-03-14] MEDS: LISINOPRIL 10 MG TABLET PO SCH (21:43)
[2023-03-14] MEDS: MELATONIN 5 MG TABLETS PO SCH (21:43)
[2023-03-14] MEDS: THIAMINE HCL 100 MG TABLET (FP) PO SCH (21:43)
[2023-03-14] MEDS: BENZOCAINE/MENTHOL (CHLORASEPTIC ) LOZENGE MM PRN (21:46)
[2023-03-15] MEDS: ASPIRIN COATED 81 MG TABLET.EC PO SCH (09:51)
[2023-03-15] MEDS: LOSARTAN POTASSIUM 25 MG TABLET PO SCH (09:51)
[2023-03-15] MEDS: amLODIPine BESYLATE 10 MG TABLET (FP) PO SCH (09:51)
[2023-03-15] MEDS: PRENATAL VITAMINS W/ FOLIC ACID TABLET (FP) PO SCH (09:51)
[2023-03-15] MEDS: LISINOPRIL 10 MG TABLET PO SCH (21:09)
[2023-03-15] MEDS: MELATONIN 5 MG TABLETS PO SCH (21:09)
[2023-03-15] MEDS: IBUPROFEN 600 MG TABLET (FP) PO PRN (21:10)
[2023-03-15] MEDS: THIAMINE HCL 100 MG TABLET (FP) PO SCH (21:10)
[2023-03-16] MEDS: COLLOIDAL OATMEAL 1 BAR EACH TP PRN (07:01)
[2023-03-16] MEDS: PRENATAL VITAMINS W/ FOLIC ACID TABLET (FP) PO SCH (09:34)
[2023-03-16] MEDS: amLODIPine BESYLATE 10 MG TABLET (FP) PO SCH (09:35)
[2023-03-16] MEDS: ASPIRIN COATED 81 MG TABLET.EC PO SCH (09:35)
[2023-03-16] MEDS: LOSARTAN POTASSIUM 25 MG TABLET PO SCH (09:35)
[2023-03-16] MEDS: THIAMINE HCL 100 MG TABLET (FP) PO SCH (21:10)
[2023-03-16] MEDS: LISINOPRIL 10 MG TABLET PO SCH (21:10)
[2023-03-16] MEDS: MELATONIN 5 MG TABLETS PO SCH (21:10)
[2023-03-17] MEDS: PRENATAL VITAMINS W/ FOLIC ACID TABLET (FP) PO SCH (09:51)
[2023-03-17] MEDS: LOSARTAN POTASSIUM 25 MG TABLET PO SCH (09:51)
[2023-03-17] MEDS: ASPIRIN COATED 81 MG TABLET.EC PO SCH (09:51)
[2023-03-17] MEDS: amLODIPine BESYLATE 10 MG TABLET (FP) PO SCH (09:51)
[2023-03-17] MEDS: MELATONIN 5 MG TABLETS PO SCH (21:45)
[2023-03-17] MEDS: THIAMINE HCL 100 MG TABLET (FP) PO SCH (21:45)
[2023-03-17] MEDS: LISINOPRIL 10 MG TABLET PO SCH (21:45)
[2023-03-18] MEDS: PRENATAL VITAMINS W/ FOLIC ACID TABLET (FP) PO SCH (09:28)
[2023-03-18] MEDS: LOSARTAN POTASSIUM 25 MG TABLET PO SCH (09:29)
[2023-03-18] MEDS: amLODIPine BESYLATE 10 MG TABLET (FP) PO SCH (09:29)
[2023-03-18] MEDS: ASPIRIN COATED 81 MG TABLET.EC PO SCH (09:29)
[2023-03-18] MEDS: THIAMINE HCL 100 MG TABLET (FP) PO SCH (21:29)
[2023-03-18] MEDS: LISINOPRIL 10 MG TABLET PO SCH (21:29)
[2023-03-18] MEDS: MELATONIN 5 MG TABLETS PO SCH (21:29)
[2023-03-19] MEDS: PRENATAL VITAMINS W/ FOLIC ACID TABLET (FP) PO SCH (09:58)
[2023-03-19] MEDS: ASPIRIN COATED 81 MG TABLET.EC PO SCH (09:59)
[2023-03-19] MEDS: amLODIPine BESYLATE 10 MG TABLET (FP) PO SCH (09:59)
[2023-03-19] MEDS: LOSARTAN POTASSIUM 25 MG TABLET PO SCH (09:59)
[2023-03-19] MEDS: LISINOPRIL 10 MG TABLET PO SCH (21:05)
[2023-03-19] MEDS: THIAMINE HCL 100 MG TABLET (FP) PO SCH (21:05)
[2023-03-19] MEDS: MELATONIN 5 MG TABLETS PO SCH (21:05)
[2023-03-20] MEDS: IBUPROFEN 600 MG TABLET (FP) PO PRN (07:01)
[2023-03-20] MEDS: LOSARTAN POTASSIUM 25 MG TABLET PO SCH (10:01)
[2023-03-20] MEDS: PRENATAL VITAMINS W/ FOLIC ACID TABLET (FP) PO SCH (10:01)
[2023-03-20] MEDS: amLODIPine BESYLATE 10 MG TABLET (FP) PO SCH (10:01)
[2023-03-20] MEDS: ASPIRIN COATED 81 MG TABLET.EC PO SCH (10:02)
[2023-03-20] MEDS: THIAMINE HCL 100 MG TABLET (FP) PO SCH (21:35)
[2023-03-20] MEDS: MELATONIN 5 MG TABLETS PO SCH (21:35)
[2023-03-20] MEDS: LISINOPRIL 10 MG TABLET PO SCH (21:35)
[2023-03-20] MEDS: hydrOXYzine PAMOATE 25 MG CAPSULE (FP) PO PRN (21:36)
[2023-03-21] MEDS: amLODIPine BESYLATE 10 MG TABLET (FP) PO SCH (09:54)
[2023-03-21] MEDS: LOSARTAN POTASSIUM 25 MG TABLET PO SCH (09:54)
[2023-03-21] MEDS: PRENATAL VITAMINS W/ FOLIC ACID TABLET (FP) PO SCH (09:54)
[2023-03-21] MEDS: ASPIRIN COATED 81 MG TABLET.EC PO SCH (09:54)
[2023-03-21] MEDS: THIAMINE HCL 100 MG TABLET (FP) PO SCH (21:29)
[2023-03-21] MEDS: MELATONIN 5 MG TABLETS PO SCH (21:29)
[2023-03-21] MEDS: hydrOXYzine PAMOATE 25 MG CAPSULE (FP) PO PRN (21:30)
[2023-03-21] MEDS: LISINOPRIL 10 MG TABLET PO SCH (21:30)
[2023-03-21] MEDS: IBUPROFEN 600 MG TABLET (FP) PO PRN (21:31)
[2023-03-22] MEDS: ASPIRIN COATED 81 MG TABLET.EC PO SCH (10:02)
[2023-03-22] MEDS: PRENATAL VITAMINS W/ FOLIC ACID TABLET (FP) PO SCH (10:02)
[2023-03-22] MEDS: LOSARTAN POTASSIUM 25 MG TABLET PO SCH (10:02)
[2023-03-22] MEDS: amLODIPine BESYLATE 10 MG TABLET (FP) PO SCH (10:02)
[2023-03-22] MEDS: THIAMINE HCL 100 MG TABLET (FP) PO SCH (21:38)
[2023-03-22] MEDS: LISINOPRIL 10 MG TABLET PO SCH (21:38)
[2023-03-22] MEDS: MELATONIN 5 MG TABLETS PO SCH (21:39)
[2023-03-23] MEDS: IBUPROFEN 600 MG TABLET (FP) PO PRN (06:39)
[2023-03-23] MEDS: COLLOIDAL OATMEAL 1 BAR EACH TP PRN (06:39)
[2023-03-23] MEDS: PRENATAL VITAMINS W/ FOLIC ACID TABLET (FP) PO SCH (10:27)
[2023-03-23] MEDS: LOSARTAN POTASSIUM 25 MG TABLET PO SCH (10:27)
[2023-03-23] MEDS: ASPIRIN COATED 81 MG TABLET.EC PO SCH (10:27)
[2023-03-23] MEDS: amLODIPine BESYLATE 10 MG TABLET (FP) PO SCH (10:27)
[2023-03-23] MEDS: LISINOPRIL 10 MG TABLET PO SCH (21:37)
[2023-03-23] MEDS: MELATONIN 5 MG TABLETS PO SCH (21:37)
[2023-03-23] MEDS: THIAMINE HCL 100 MG TABLET (FP) PO SCH (21:37)
[2023-03-24] MEDS: LOSARTAN POTASSIUM 25 MG TABLET PO SCH (09:38)
[2023-03-24] MEDS: amLODIPine BESYLATE 10 MG TABLET (FP) PO SCH (09:38)
[2023-03-24] MEDS: ASPIRIN COATED 81 MG TABLET.EC PO SCH (09:38)
[2023-03-24] MEDS: PRENATAL VITAMINS W/ FOLIC ACID TABLET (FP) PO SCH (09:38)
[2023-03-24] MEDS: LISINOPRIL 10 MG TABLET PO SCH (21:44)
[2023-03-24] MEDS: MELATONIN 5 MG TABLETS PO SCH (21:44)
[2023-03-24] MEDS: THIAMINE HCL 100 MG TABLET (FP) PO SCH (21:44)
[2023-03-25] MEDS: amLODIPine BESYLATE 10 MG TABLET (FP) PO SCH (10:13)
[2023-03-25] MEDS: ASPIRIN COATED 81 MG TABLET.EC PO SCH (10:13)
[2023-03-25] MEDS: LOSARTAN POTASSIUM 25 MG TABLET PO SCH (10:13)
[2023-03-25] MEDS: PRENATAL VITAMINS W/ FOLIC ACID TABLET (FP) PO SCH (10:13)
[2023-03-25] MEDS: THIAMINE HCL 100 MG TABLET (FP) PO SCH (21:03)
[2023-03-25] MEDS: MELATONIN 5 MG TABLETS PO SCH (21:03)
[2023-03-25] MEDS: LISINOPRIL 10 MG TABLET PO SCH (21:03)
[2023-03-26] MEDS: IBUPROFEN 600 MG TABLET (FP) PO PRN (06:53)
[2023-03-26 07:30] VITALS: RESP 18
[2023-03-26] MEDS: PRENATAL VITAMINS W/ FOLIC ACID TABLET (FP) PO SCH (10:06)
[2023-03-26] MEDS: ASPIRIN COATED 81 MG TABLET.EC PO SCH (10:07)
[2023-03-26] MEDS: LOSARTAN POTASSIUM 25 MG TABLET PO SCH (10:07)
[2023-03-26] MEDS: amLODIPine BESYLATE 10 MG TABLET (FP) PO SCH (10:07)
[2023-03-26] MEDS: THIAMINE HCL 100 MG TABLET (FP) PO SCH (21:51)
[2023-03-26] MEDS: LISINOPRIL 10 MG TABLET PO SCH (21:51)
[2023-03-26] MEDS: MELATONIN 5 MG TABLETS PO SCH (21:51)
[2023-03-27] MEDS: amLODIPine BESYLATE 10 MG TABLET (FP) PO SCH (09:34)
[2023-03-27] MEDS: PRENATAL VITAMINS W/ FOLIC ACID TABLET (FP) PO SCH (09:34)
[2023-03-27] MEDS: ASPIRIN COATED 81 MG TABLET.EC PO SCH (09:34)
[2023-03-27] MEDS: LOSARTAN POTASSIUM 25 MG TABLET PO SCH (09:34)
[2023-03-27] MEDS: MELATONIN 5 MG TABLETS PO SCH (21:21)
[2023-03-27] MEDS: THIAMINE HCL 100 MG TABLET (FP) PO SCH (21:21)
[2023-03-27] MEDS: LISINOPRIL 10 MG TABLET PO SCH (21:21)
[2023-03-28] MEDS: PRENATAL VITAMINS W/ FOLIC ACID TABLET (FP) PO SCH (10:10)
[2023-03-28] MEDS: LOSARTAN POTASSIUM 25 MG TABLET PO SCH (10:10)
[2023-03-28] MEDS: ASPIRIN COATED 81 MG TABLET.EC PO SCH (10:10)
[2023-03-28] MEDS: amLODIPine BESYLATE 10 MG TABLET (FP) PO SCH (10:10)
[2023-03-28] MEDS: IBUPROFEN 600 MG TABLET (FP) PO PRN (10:11)
[2023-03-28] MEDS: MELATONIN 5 MG TABLETS PO SCH (21:41)
[2023-03-28] MEDS: THIAMINE HCL 100 MG TABLET (FP) PO SCH (21:41)
[2023-03-28] MEDS: LISINOPRIL 10 MG TABLET PO SCH (21:41)
[2023-03-29] MEDS: LOSARTAN POTASSIUM 25 MG TABLET PO SCH (10:05)
[2023-03-29] MEDS: ASPIRIN COATED 81 MG TABLET.EC PO SCH (10:05)
[2023-03-29] MEDS: amLODIPine BESYLATE 10 MG TABLET (FP) PO SCH (10:05)
[2023-03-29] MEDS: PRENATAL VITAMINS W/ FOLIC ACID TABLET (FP) PO SCH (10:05)
[2023-03-29] MEDS: MELATONIN 5 MG TABLETS PO SCH (21:38)
[2023-03-29] MEDS: THIAMINE HCL 100 MG TABLET (FP) PO SCH (21:38)
[2023-03-29] MEDS: LISINOPRIL 10 MG TABLET PO SCH (21:38)
[2023-03-29] MEDS: IBUPROFEN 600 MG TABLET (FP) PO PRN (21:40)
[2023-03-29] MEDS: hydrOXYzine PAMOATE 25 MG CAPSULE (FP) PO PRN (21:40)
[2023-03-30] MEDS: PRENATAL VITAMINS W/ FOLIC ACID TABLET (FP) PO SCH (10:09)
[2023-03-30] MEDS: LOSARTAN POTASSIUM 25 MG TABLET PO SCH (10:10)
[2023-03-30] MEDS: amLODIPine BESYLATE 10 MG TABLET (FP) PO SCH (10:10)
[2023-03-30] MEDS: ASPIRIN COATED 81 MG TABLET.EC PO SCH (10:10)
[2023-03-30] MEDS: COLLOIDAL OATMEAL 1 BAR EACH TP PRN (10:11)
[2023-03-30] MEDS: IBUPROFEN 600 MG TABLET (FP) PO PRN (21:03)
[2023-03-30] MEDS: LISINOPRIL 10 MG TABLET PO SCH (21:04)
[2023-03-30] MEDS: MELATONIN 5 MG TABLETS PO SCH (21:04)
[2023-03-30] MEDS: THIAMINE HCL 100 MG TABLET (FP) PO SCH (21:04)
[2023-03-30] MEDS: hydrOXYzine PAMOATE 25 MG CAPSULE (FP) PO PRN (21:04)
[2023-03-31] MEDS: PRENATAL VITAMINS W/ FOLIC ACID TABLET (FP) PO SCH (10:14)
[2023-03-31] MEDS: amLODIPine BESYLATE 10 MG TABLET (FP) PO SCH (10:15)
[2023-03-31] MEDS: ASPIRIN COATED 81 MG TABLET.EC PO SCH (10:15)
[2023-03-31] MEDS: LOSARTAN POTASSIUM 25 MG TABLET PO SCH (10:15)
[2023-03-31] MEDS: LISINOPRIL 10 MG TABLET PO SCH (21:39)
[2023-03-31] MEDS: THIAMINE HCL 100 MG TABLET (FP) PO SCH (21:39)
[2023-03-31] MEDS: MELATONIN 5 MG TABLETS PO SCH (21:39)
[2023-04-01] MEDS: IBUPROFEN 600 MG TABLET (FP) PO PRN (07:15)
[2023-04-01] MEDS: amLODIPine BESYLATE 10 MG TABLET (FP) PO SCH (10:03)
[2023-04-01] MEDS: LOSARTAN POTASSIUM 25 MG TABLET PO SCH (10:03)
[2023-04-01] MEDS: PRENATAL VITAMINS W/ FOLIC ACID TABLET (FP) PO SCH (10:04)
[2023-04-01] MEDS: ASPIRIN COATED 81 MG TABLET.EC PO SCH (10:04)
[2023-04-01] MEDS: hydrOXYzine PAMOATE 25 MG CAPSULE (FP) PO PRN (21:48)
[2023-04-01] MEDS: THIAMINE HCL 100 MG TABLET (FP) PO SCH (21:48)
[2023-04-01] MEDS: LISINOPRIL 10 MG TABLET PO SCH (21:48)
[2023-04-01] MEDS: MELATONIN 5 MG TABLETS PO SCH (21:48)
[2023-04-02] MEDS: IBUPROFEN 600 MG TABLET (FP) PO PRN ×2 (05:43→21:42)
[2023-04-02] MEDS: BENZOCAINE/MENTHOL (CHLORASEPTIC ) LOZENGE MM PRN (05:44)
[2023-04-02] MEDS: LOSARTAN POTASSIUM 25 MG TABLET PO SCH (10:27)
[2023-04-02] MEDS: PRENATAL VITAMINS W/ FOLIC ACID TABLET (FP) PO SCH (10:27)
[2023-04-02] MEDS: ASPIRIN COATED 81 MG TABLET.EC PO SCH (10:28)
[2023-04-02] MEDS: amLODIPine BESYLATE 10 MG TABLET (FP) PO SCH (10:28)
[2023-04-02] MEDS: THIAMINE HCL 100 MG TABLET (FP) PO SCH (21:42)
[2023-04-02] MEDS: LISINOPRIL 10 MG TABLET PO SCH (21:42)
[2023-04-02] MEDS: MELATONIN 5 MG TABLETS PO SCH (21:43)
[2023-04-02] MEDS: hydrOXYzine PAMOATE 25 MG CAPSULE (FP) PO PRN (21:43)
[2023-04-03] MEDS: ASPIRIN COATED 81 MG TABLET.EC PO SCH (10:06)
[2023-04-03] MEDS: amLODIPine BESYLATE 10 MG TABLET (FP) PO SCH (10:06)
[2023-04-03] MEDS: PRENATAL VITAMINS W/ FOLIC ACID TABLET (FP) PO SCH (10:06)
[2023-04-03] MEDS: LOSARTAN POTASSIUM 25 MG TABLET PO SCH (10:06)
[2023-04-03] MEDS: THIAMINE HCL 100 MG TABLET (FP) PO SCH (21:36)
[2023-04-03] MEDS: MELATONIN 5 MG TABLETS PO SCH (21:36)
[2023-04-03] MEDS: IBUPROFEN 600 MG TABLET (FP) PO PRN (21:37)
[2023-04-03] MEDS: LISINOPRIL 10 MG TABLET PO SCH (21:37)
[2023-04-03] MEDS: hydrOXYzine PAMOATE 25 MG CAPSULE (FP) PO PRN (21:37)
[2023-04-04 06:59] VITALS: TEMP 97.4
[2023-04-04] MEDS: PRENATAL VITAMINS W/ FOLIC ACID TABLET (FP) PO SCH (09:15)
[2023-04-04] MEDS: LOSARTAN POTASSIUM 25 MG TABLET PO SCH (09:15)
[2023-04-04] MEDS: ASPIRIN COATED 81 MG TABLET.EC PO SCH (09:15)
[2023-04-04] MEDS: amLODIPine BESYLATE 10 MG TABLET (FP) PO SCH (09:16)
[2023-04-04 09:42] VITALS: BP 141/73; PULSE 91
== END 2023-04-04 10:25 | disposition home or self-care (01) | DRG 772 ==
LOC: YASAS 14:44 → Y5N 14:45
PROVIDERS: ADMIT Allergy & Immunology; ATTEND Psychiatry & Neurology Pain Medicine
PROC: HZ42ZZZ Group Counseling for Substance Abuse Treatment, Cognitive-Behavioral (ICD-10-PCS; principal; 2023-03-13)
DX: F10.20 Alcohol dependence, uncomplicated (principal); E78.5 Hyperlipidemia, unspecified; I10 Essential (primary) hypertension; M54.50 Low back pain, unspecified; G89.29 Other chronic pain; E66.01 Morbid (severe) obesity due to excess calories; Z68.43 Body mass index [BMI] 50.0-59.9, adult

== ENCOUNTER 2023-06-10 15:54 | Inpatient (IN) | payer OTHER ==
[2023-06-10 17:47] VITALS: BMI 57.1
[2023-06-10] MEDS ORDERED: IBUPROFEN 400 MG TABLET (FP) PO PRN (18:54)
[2023-06-10] MEDS ORDERED: MAGNESIUM HYDROX 2400MG/30ML ORAL SUSPENSION 30 ML CUP PO PRN (18:54)
[2023-06-10] MEDS ORDERED: BENZONATATE 200 MG CAPSULE PO PRN (18:54)
[2023-06-10] MEDS ORDERED: BENZOCAINE/MENTHOL (CHLORASEPTIC ) LOZENGE MM PRN (18:54)
[2023-06-10] MEDS ORDERED: POLYETHYLENE GLYCOL (HEALTHYLAX) 3350 17 GM PACKET PO PRN (18:54)
[2023-06-10] MEDS ORDERED: NICOTINE POLACRILEX 2 MG GUM BUC PRN (18:54)
[2023-06-10] MEDS ORDERED: DICYCLOMINE HCL 10 MG CAPSULE PO PRN (18:54)
[2023-06-10] MEDS ORDERED: LOPERAMIDE HCL 2 MG CAPSULE PO PRN (18:54)
[2023-06-10] MEDS ORDERED: ONDANSETRON *ODT* 4 MG TABLET SL PRN (18:54)
[2023-06-10] MEDS ORDERED: IBUPROFEN 600 MG TABLET (FP) PO PRN (18:54)
[2023-06-10] MEDS ORDERED: MAG HYDROX/AL HYDROX/SIMETH 30 ML UNIT-DOSE CUP PO PRN (18:54)
[2023-06-10] MEDS ORDERED: guaiFENesin 600 MG TABLET.ER (FP) PO PRN (18:54)
[2023-06-10] MEDS ORDERED: BISMUTH SUBSALICYLATE 524 MG/30 ML PO PRN (18:54)
[2023-06-10] MEDS ORDERED: P-EPHED 60MG/TRIPROLIDI 2.5MG TABLET PO PRN (18:54)
[2023-06-10] MEDS ORDERED: diazePAM 5 MG TABLET PO PRN (18:56)
[2023-06-10] MEDS: diazePAM 5 MG TABLET PO SCH (22:11)
[2023-06-10] MEDS: THIAMINE HCL 100 MG TABLET (FP) PO SCH (22:11)
[2023-06-10] MEDS: MELATONIN 5 MG TABLETS PO SCH (22:11)
[2023-06-10] MEDS: METHOCARBAMOL 500 MG TABLET PO PRN (22:13)
[2023-06-11] MEDS: diazePAM 5 MG TABLET PO SCH ×4 (05:25→22:21)
[2023-06-11] MEDS: METHOCARBAMOL 500 MG TABLET PO PRN ×2 (07:43→22:22)
[2023-06-11] MEDS: PRENATAL VITAMINS W/ FOLIC ACID TABLET (FP) PO SCH (10:23)
[2023-06-11 12:17] LABS: CHLORIDE 106 mmol/L (98-107); HEMATOCRIT 40.3 % (35.4-49); HEMOGLOBIN 13.3 GM/dL (11.7-16.9); MCHC 33.1 g/dl (32.0-35.9); MEAN CELL VOLUME 87.6 fl (80-96); MEAN PLT VOLUME 8.8 fl (7.5-11.1); PLATELET COUNT 348 10^3/uL (134-434); POTASSIUM 4.4 mmol/L (3.5-5.1); RDW 14.7 % (11.9-15.9); SODIUM 140 mmol/L (136-145)
[2023-06-11 12:24] LABS: CALCIUM 9.1 mg/dL (8.5-10.1)
[2023-06-11 12:25] LABS: ALBUMIN 3.5 g/dl (3.4-5.0); ANION GAP 7 mmol/L (4-13); BLOOD UREA NITROGEN 16.8 mg/dL (7-18); CO2 27 mmol/L (21-32); GLUCOSE,RANDOM 134 mg/dL (74-106)
[2023-06-11 12:28] LABS: CREATININE 1.3 mg/dL (0.55-1.3); SGOT/AST 22 U/L (15-37); SGPT/ALT 26 U/L (13-61)
[2023-06-11 12:30] LABS: BILIRUBIN,TOTAL 0.5 mg/dL (0.2-1); TOT PROT 6.5 g/dl (6.4-8.2)
[2023-06-11 12:31] LABS: ALK PHOS 108 U/L (45-117)
[2023-06-11] MEDS: ACETAMINOPHEN 325 MG TABLET (FP) PO PRN (17:25)
[2023-06-11] MEDS: THIAMINE HCL 100 MG TABLET (FP) PO SCH (22:21)
[2023-06-11] MEDS: MELATONIN 5 MG TABLETS PO SCH (22:21)
[2023-06-12] MEDS: diazePAM 5 MG TABLET PO SCH ×2 (05:30→17:45)
[2023-06-12] MEDS: PRENATAL VITAMINS W/ FOLIC ACID TABLET (FP) PO SCH (10:21)
[2023-06-12] MEDS: ACETAMINOPHEN 325 MG TABLET (FP) PO PRN (17:47)
[2023-06-12] MEDS: THIAMINE HCL 100 MG TABLET (FP) PO SCH (22:54)
[2023-06-12] MEDS: MELATONIN 5 MG TABLETS PO SCH (22:54)
[2023-06-13] MEDS ORDERED: diazePAM 5 MG TABLET PO ONE (06:00)
[2023-06-13 06:24] VITALS: RESP 20
[2023-06-13 09:12] VITALS: BP 131/64; PULSE 79; TEMP 98
[2023-06-13] MEDS: PRENATAL VITAMINS W/ FOLIC ACID TABLET (FP) PO SCH (10:10)
[2023-06-13] MEDS ORDERED: LISINOPRIL 10 MG TABLET PO SCH (22:00)
[2023-06-14] MEDS ORDERED: ASPIRIN COATED 81 MG TABLET.EC PO SCH (10:00)
[2023-06-14] MEDS ORDERED: LOSARTAN POTASSIUM 25 MG TABLET PO SCH (10:00)
[2023-06-14] MEDS ORDERED: amLODIPine BESYLATE 10 MG TABLET (FP) PO SCH (10:00)
== END 2023-06-13 11:46 | disposition other institution (70) | DRG 774 ==
LOC: YASAS 15:54 → Y3N 19:17
PROVIDERS: ADMIT Allergy & Immunology; ATTEND Surgery
PROC: HZ2ZZZZ Detoxification Services for Substance Abuse Treatment (ICD-10-PCS; principal; 2023-06-10)
DX: F10.230 Alcohol dependence with withdrawal, uncomplicated (principal); F14.20 Cocaine dependence, uncomplicated; I10 Essential (primary) hypertension; E66.01 Morbid (severe) obesity due to excess calories; Z68.43 Body mass index [BMI] 50.0-59.9, adult; Z86.19 Personal history of other infectious and parasitic diseases
CPT/HCPCS: 36415; 80053; 80307; 85027; 86593; 86780; 87635; 93005; 93010; Q0162

== ENCOUNTER 2023-11-27 10:44 | Inpatient (IN) | payer OTHER ==
[2023-11-27 12:17] VITALS: BMI 57.6
[2023-11-27] MEDS ORDERED: hydrOXYzine PAMOATE 25 MG CAPSULE (FP) PO PRN (13:25)
[2023-11-27] MEDS ORDERED: POLYETHYLENE GLYCOL (HEALTHYLAX) 3350 17 GM PACKET PO PRN (13:25)
[2023-11-27] MEDS ORDERED: NICOTINE POLACRILEX 4 MG LOZENGE BC PRN (13:25)
[2023-11-27] MEDS ORDERED: BENZONATATE 200 MG CAPSULE PO PRN (13:25)
[2023-11-27] MEDS ORDERED: DICYCLOMINE HCL 10 MG CAPSULE PO PRN (13:25)
[2023-11-27] MEDS ORDERED: MAGNESIUM HYDROX 2400MG/30ML ORAL SUSPENSION 30 ML CUP PO PRN (13:25)
[2023-11-27] MEDS ORDERED: IBUPROFEN 400 MG TABLET (FP) PO PRN (13:25)
[2023-11-27] MEDS ORDERED: NICOTINE POLACRILEX 4 MG GUM BUC PRN (13:25)
[2023-11-27] MEDS ORDERED: MAG HYDROX/AL HYDROX/SIMETH 30 ML UNIT-DOSE CUP PO PRN (13:25)
[2023-11-27] MEDS ORDERED: NALOXONE HCL 0.4 MG/ML VIAL IM PRN (13:25)
[2023-11-27] MEDS ORDERED: ONDANSETRON *ODT* 4 MG TABLET SL PRN (13:25)
[2023-11-27] MEDS ORDERED: NALOXONE HCL (KLOXXADO) 8 MG SPRAY NS PRN (13:25)
[2023-11-27] MEDS ORDERED: chlordiazePOXIDE HCL 25 MG CAPSULE PO PRN (13:30)
[2023-11-27] MEDS ORDERED: methaDONE HCL 10 MG TABLET (FOR DETOX USE ONLY) ONE (14:01)
[2023-11-27] MEDS: methaDONE HCL 10 MG TABLET (FOR DETOX USE ONLY) PO ONE (14:13)
[2023-11-27] MEDS: LOSARTAN POTASSIUM 25 MG TABLET PO SCH (14:51)
[2023-11-27] MEDS: LISINOPRIL 10 MG TABLET PO SCH (14:52)
[2023-11-27] MEDS: ASPIRIN COATED 81 MG TABLET.EC PO SCH (14:53)
[2023-11-27] MEDS: NICOTINE 21 MG/24 HOURS TOPICAL PATCH TD SCH (14:54)
[2023-11-27] MEDS: BISMUTH SUBSALICYLATE 524 MG/30 ML PO PRN (14:59)
[2023-11-27] MEDS: chlordiazePOXIDE HCL 25 MG CAPSULE PO SCH (17:23)
[2023-11-27] MEDS: IBUPROFEN 600 MG TABLET (FP) PO PRN (17:24)
[2023-11-27] MEDS: MELATONIN 5 MG TABLETS PO SCH (22:06)
[2023-11-27] MEDS: THIAMINE 100 MG TABLET PO SCH (22:06)
[2023-11-28] MEDS: ACETAMINOPHEN 325 MG TABLET (FP) PO PRN (05:09)
[2023-11-28] MEDS: PRENATAL VITAMINS W/ FOLIC ACID TABLET (FP) PO SCH (10:11)
[2023-11-28] MEDS: amLODIPine BESYLATE 10 MG TABLET (FP) PO SCH (10:12)
[2023-11-28] MEDS: GABAPENTIN 100 MG CAPSULE PO SCH (10:12)
[2023-11-28 11:53] LABS: HEMATOCRIT 36.5 % (35.4-49); HEMOGLOBIN 12.1 GM/dL (11.7-16.9); MCHC 33.1 g/dl (32.0-35.9); MEAN CELL VOLUME 87.7 fl (80-96); PLATELET COUNT 322 10^3/uL (134-434); RBC 4.16 M/mm3 (4.00-5.60); RDW 14.6 % (11.9-15.9); WHITE BLOOD COUNT 6.4 K/mm3 (4.0-10.0)
[2023-11-28 12:46] LABS: CHLORIDE 103 mmol/L (98-107); POTASSIUM 4.3 mmol/L (3.5-5.1); SODIUM 138 mmol/L (136-145)
[2023-11-28 12:51] LABS: ALBUMIN 3.3 g/dl (3.4-5.0); CALCIUM 8.4 mg/dL (8.5-10.1); GLUCOSE,RANDOM 205 mg/dL (74-106)
[2023-11-28 12:52] LABS: ANION GAP 6 mmol/L (4-13); BLOOD UREA NITROGEN 27.4 mg/dL (7-18); CO2 28 mmol/L (21-32)
[2023-11-28 12:54] LABS: CREATININE 1.6 mg/dL (0.55-1.3); SGOT/AST 21 U/L (15-37); SGPT/ALT 29 U/L (13-61)
[2023-11-28 12:56] LABS: BILIRUBIN,TOTAL 0.4 mg/dL (0.2-1)
[2023-11-28 12:57] LABS: ALK PHOS 115 U/L (45-117); TOT PROT 6.4 g/dl (6.4-8.2)
[2023-11-28] MEDS: METHOCARBAMOL 500 MG TABLET PO PRN (22:21)
[2023-11-28 23:01] LABS: PH,URINE 5.5 (5.0-8.0); URINE APPEARANCE CLEAR; URINE BILIRUBIN NEGATIVE (NEGATIVE); URINE COLOR YELLOW; URINE GLUCOSE (UA) NEGATIVE (NEGATIVE); URINE KETONE NEGATIVE (NEGATIVE); URINE LEUK ESTERASE NEGATIVE (NEGATIVE); URINE NITRITE NEGATIVE (NEGATIVE); URINE PROTEIN NEGATIVE (NEGATIVE); URINE UROBILINOGEN 0.2 mg/dL (0.2-1.0)
[2023-11-29] MEDS: chlordiazePOXIDE HCL 25 MG CAPSULE PO SCH (05:19)
[2023-11-29] MEDS: methaDONE HCL 10 MG TABLET (FOR DETOX USE ONLY) PO ONE (10:07)
[2023-11-29] MEDS: BENZOCAINE/MENTHOL (CHLORASEPTIC ) LOZENGE MM PRN (10:12)
[2023-11-29] MEDS: ALBUTEROL SO4 HFA INHALER IH PRN (11:57)
[2023-11-29] MEDS: predniSONE 20 MG TABLET (UD) PO SCH (14:43)
[2023-11-29] MEDS: guaiFENesin 600 MG TABLET.ER (FP) PO PRN (14:43)
[2023-11-29] MEDS: LACTULOSE 20 GM/30 ML UDC (FOR ORAL USE ONLY) PO SCH (14:55)
[2023-11-29] MEDS: cloNIDine HCL 0.1 MG TABLET PO PRN (20:44)
[2023-11-30] MEDS ORDERED: chlordiazePOXIDE HCL 10 MG CAPSULE PO PRN
[2023-11-30] MEDS: chlordiazePOXIDE HCL 10 MG CAPSULE PO SCH (05:24)
[2023-11-30] MEDS: LOPERAMIDE HCL 2 MG CAPSULE PO PRN (10:20)
[2023-12-01] MEDS: chlordiazePOXIDE HCL 10 MG CAPSULE PO SCH (05:09)
[2023-12-01] MEDS: methaDONE HCL 10 MG TABLET (FOR DETOX USE ONLY) PO ONE (10:04)
[2023-12-01 11:42] LABS: POTASSIUM 4.7 mmol/L (3.5-5.1)
[2023-12-01 11:44] LABS: CALCIUM 9.6 mg/dL (8.5-10.1)
[2023-12-01 11:45] LABS: BLOOD UREA NITROGEN 18.3 mg/dL (7-18)
[2023-12-01 11:48] LABS: CREATININE 1.3 mg/dL (0.55-1.3)
[2023-12-01] MEDS: INSULIN ASPART SLIDING SCALE (NOVOLOG) 1 VIAL SQ SCH (16:47)
[2023-12-01] MEDS: traZODone HCL 50 MG TABLET (FP) PO SCH (21:26)
[2023-12-02] MEDS: chlordiazePOXIDE HCL 10 MG CAPSULE PO ONE (05:26)
[2023-12-02 06:13] VITALS: RESP 18
[2023-12-02 13:33] VITALS: BP 149/79; PULSE 85; TEMP 98
== END 2023-12-02 13:34 | disposition other institution (70) | DRG 773 ==
LOC: YASAS 10:44 → SUATTDRO 10:44 → Y3N 14:02
PROVIDERS: ADMIT Psychiatry & Neurology Pain Medicine; ATTEND Surgery
PROC: HZ2ZZZZ Detoxification Services for Substance Abuse Treatment (ICD-10-PCS; principal; 2023-11-27)
DX: F11.23 Opioid dependence with withdrawal (principal); F10.230 Alcohol dependence with withdrawal, uncomplicated; F14.20 Cocaine dependence, uncomplicated; F17.210 Nicotine dependence, cigarettes, uncomplicated; I25.10 Atherosclerotic heart disease of native coronary artery without angina pectoris; I10 Essential (primary) hypertension; E11.9 Type 2 diabetes mellitus without complications; Z79.84 Long term (current) use of oral hypoglycemic drugs; R79.89 Other specified abnormal findings of blood chemistry; E66.01 Morbid (severe) obesity due to excess calories; Z68.43 Body mass index [BMI] 50.0-59.9, adult; Z86.19 Personal history of other infectious and parasitic diseases
CPT/HCPCS: 36415; 80048; 80053; 80305; 80307; 81003; 82140; 82947; 82962; 83036; 85027; 86593; 86780; 87811; 93005; 93010

== ENCOUNTER 2023-12-02 13:44 | Inpatient (IN) | payer OTHER ==
[2023-12-02] MEDS ORDERED: NALOXONE (NYS OPIOID OVERDOSE PROGRAM) 4 MG/0.1 ML SPRAY NS PRN (14:47)
[2023-12-02] MEDS ORDERED: NALOXONE HCL 0.4 MG/ML VIAL IVPUSH PRN (14:47)
[2023-12-02] MEDS ORDERED: guaiFENesin 600 MG TABLET.ER (FP) PO PRN (14:47)
[2023-12-02] MEDS ORDERED: POLYETHYLENE GLYCOL (HEALTHYLAX) 3350 17 GM PACKET PO PRN (14:47)
[2023-12-02] MEDS ORDERED: MAGNESIUM HYDROX 2400MG/30ML ORAL SUSPENSION 30 ML CUP PO PRN (14:47)
[2023-12-02] MEDS ORDERED: NICOTINE POLACRILEX 4 MG LOZENGE BC PRN (14:47)
[2023-12-02] MEDS ORDERED: BENZONATATE 200 MG CAPSULE PO PRN (14:47)
[2023-12-02] MEDS ORDERED: NICOTINE POLACRILEX 4 MG GUM BUC PRN (14:47)
[2023-12-02] MEDS ORDERED: LOPERAMIDE HCL 2 MG CAPSULE PO PRN (14:47)
[2023-12-02] MEDS ORDERED: ALBUTEROL SO4 HFA INHALER IH PRN (14:49)
[2023-12-02] MEDS: traZODone HCL 50 MG TABLET (FP) PO SCH (21:47)
[2023-12-02] MEDS: THIAMINE 100 MG TABLET PO SCH (21:47)
[2023-12-02] MEDS: MELATONIN 5 MG TABLETS PO SCH (21:47)
[2023-12-02] MEDS: IBUPROFEN 600 MG TABLET (FP) PO PRN (21:47)
[2023-12-02] MEDS: BENZOCAINE/MENTHOL (CHLORASEPTIC ) LOZENGE MM PRN (21:48)
[2023-12-02] MEDS ORDERED: traZODone HCL 50 MG TABLET (FP) PO SCH (22:00)
[2023-12-03] MEDS ORDERED: predniSONE 20 MG TABLET (UD) PO SCH (10:00)
[2023-12-03] MEDS: PRENATAL VITAMINS W/ FOLIC ACID TABLET (FP) PO SCH (10:18)
[2023-12-03] MEDS: ASPIRIN COATED 81 MG TABLET.EC PO SCH (10:18)
[2023-12-03] MEDS: GABAPENTIN 100 MG CAPSULE PO SCH (10:18)
[2023-12-03] MEDS: LOSARTAN POTASSIUM 25 MG TABLET PO SCH (10:18)
[2023-12-03] MEDS: LISINOPRIL 10 MG TABLET PO SCH (10:18)
[2023-12-03] MEDS: amLODIPine BESYLATE 10 MG TABLET (FP) PO SCH (10:18)
[2023-12-03] MEDS: NICOTINE 7 MG/24 HOURS TOPICAL PATCH TD SCH (10:19)
[2023-12-03] MEDS: predniSONE 20 MG TABLET (UD) PO ONE (10:19)
[2023-12-03] MEDS: metFORMIN HCL 500 MG TABLET (FP) PO SCH (11:46)
[2023-12-04] MEDS: hydrOXYzine PAMOATE 25 MG CAPSULE (FP) PO PRN (06:40)
[2023-12-04] MEDS: IBUPROFEN 400 MG TABLET (FP) PO PRN (21:12)
[2023-12-05] MEDS: INSULIN ASPART SLIDING SCALE (NOVOLOG) 1 VIAL SQ SCH (16:29)
[2023-12-06] MEDS: ACETAMINOPHEN 325 MG TABLET (FP) PO PRN (06:08)
[2023-12-06] MEDS: METHOCARBAMOL 500 MG TABLET PO PRN (09:45)
[2023-12-06] MEDS: metFORMIN HCL 500 MG TABLET (FP) PO SCH (16:55)
[2023-12-06] MEDS: AMOX TR/POT CLAV 875MG/125MG TABLETS (FP) PO SCH (17:05)
[2023-12-06] MEDS: ATORVASTATIN CA 20 MG TABLET (FP) PO SCH (21:09)
[2023-12-06] MEDS: BACLOFEN 10 MG TABLET (FP) PO SCH (21:09)
[2023-12-07] MEDS ORDERED: INSULIN ASPART SLIDING SCALE (NOVOLOG) 1 VIAL SQ ONE (07:39)
[2023-12-07] MEDS: LISINOPRIL 10 MG TABLET PO SCH (10:26)
[2023-12-07] MEDS: NALTREXONE HCL 50 MG TABLET PO SCH (10:26)
[2023-12-07] MEDS: MAG HYDROX/AL HYDROX/SIMETH 30 ML UNIT-DOSE CUP PO PRN (17:21)
[2023-12-08] MEDS ORDERED: INSULIN ASPART SLIDING SCALE (NOVOLOG) 1 VIAL SQ ONE (06:23)
[2023-12-09] MEDS ORDERED: INSULIN ASPART SLIDING SCALE (NOVOLOG) 1 VIAL SQ ONE (06:20)
[2023-12-12] MEDS ORDERED: INSULIN ASPART SLIDING SCALE (NOVOLOG) 1 VIAL SQ ONE (07:23)
[2023-12-14] MEDS: NALTREXONE HCL 50 MG TABLET PO SCH (09:34)
[2023-12-14] MEDS: LOSARTAN POTASSIUM 50 MG TABLET PO SCH (09:34)
[2023-12-15] MEDS: LISINOPRIL 20 MG TABLET PO SCH (10:48)
[2023-12-22] MEDS: HYDROCHLOROTHIAZIDE 25 MG TABLET (FP) PO SCH (12:32)
[2023-12-23] MEDS ORDERED: INSULIN ASPART SLIDING SCALE (NOVOLOG) 1 VIAL SQ ONE (06:45)
[2023-12-24] MEDS: cloNIDine HCL 0.1 MG TABLET PO ONE (13:07)
[2023-12-28] MEDS ORDERED: INSULIN ASPART SLIDING SCALE (NOVOLOG) 1 VIAL SQ ONE (06:03)
[2023-12-29] MEDS ORDERED: INSULIN ASPART SLIDING SCALE (NOVOLOG) 1 VIAL SQ ONE (06:25)
[2023-12-29] MEDS: HYDROCHLOROTHIAZIDE 25 MG TABLET (FP) PO ONE (13:16)
[2023-12-29] MEDS ORDERED: NALTREXONE MICROSPHERES (VIVITROL) 380 MG DISP.SYRIN IM ONE (18:00)
[2023-12-29] MEDS: NALTREXONE MICROSPHERES (VIVITROL) 380 MG DISP.SYRIN IM ONE (18:54)
[2023-12-30 07:27] VITALS: TEMP 97.5
[2023-12-30 09:21] VITALS: BP 130/72; PULSE 84; RESP 18
[2023-12-30] MEDS: HYDROCHLOROTHIAZIDE 25 MG TABLET (FP) PO SCH (09:34)
== END 2023-12-30 09:44 | disposition home or self-care (01) | DRG 772 ==
LOC: YASAS 13:44 → Y3W 13:46
PROVIDERS: ADMIT Allergy & Immunology; ATTEND Psychiatry & Neurology Pain Medicine
PROC: HZ42ZZZ Group Counseling for Substance Abuse Treatment, Cognitive-Behavioral (ICD-10-PCS; principal; 2023-12-02)
DX: F11.20 Opioid dependence, uncomplicated (principal); F10.20 Alcohol dependence, uncomplicated; F14.20 Cocaine dependence, uncomplicated; F17.210 Nicotine dependence, cigarettes, uncomplicated; F19.282 Other psychoactive substance dependence with psychoactive substance-induced sleep disorder; I25.10 Atherosclerotic heart disease of native coronary artery without angina pectoris; I10 Essential (primary) hypertension; E78.5 Hyperlipidemia, unspecified; E11.9 Type 2 diabetes mellitus without complications; Z79.84 Long term (current) use of oral hypoglycemic drugs; M54.50 Low back pain, unspecified; G89.29 Other chronic pain
CPT/HCPCS: 36415; 82140; 82962; 86803; J0475

== ENCOUNTER 2024-02-08 14:08 | Inpatient (IN) | payer OTHER ==
[2024-02-08 15:28] VITALS: BMI 59.0
[2024-02-08] MEDS ORDERED: guaiFENesin 600 MG TABLET.ER (FP) PO PRN (15:52)
[2024-02-08] MEDS ORDERED: chlordiazePOXIDE HCL 25 MG CAPSULE PO PRN (15:52)
[2024-02-08] MEDS ORDERED: BENZONATATE 200 MG CAPSULE PO PRN (15:52)
[2024-02-08] MEDS ORDERED: DICYCLOMINE HCL 10 MG CAPSULE PO PRN (15:52)
[2024-02-08] MEDS ORDERED: ACETAMINOPHEN 325 MG TABLET (FP) PO PRN (15:52)
[2024-02-08] MEDS ORDERED: NALOXONE HCL 0.4 MG/ML VIAL IM PRN (15:52)
[2024-02-08] MEDS ORDERED: MAGNESIUM HYDROX 2400MG/30ML ORAL SUSPENSION 30 ML CUP PO PRN (15:52)
[2024-02-08] MEDS ORDERED: NALOXONE (NARCAN) HCL 4 MG/0.1 ML SPRAY NS PRN (15:52)
[2024-02-08] MEDS ORDERED: POLYETHYLENE GLYCOL (HEALTHYLAX) 3350 17 GM PACKET PO PRN (15:52)
[2024-02-08] MEDS ORDERED: ONDANSETRON *ODT* 4 MG TABLET SL PRN (15:52)
[2024-02-08] MEDS ORDERED: IBUPROFEN 400 MG TABLET (FP) PO PRN (15:52)
[2024-02-08] MEDS ORDERED: BISMUTH SUBSALICYLATE 524 MG/30 ML PO PRN (15:52)
[2024-02-08] MEDS ORDERED: BENZOCAINE/MENTHOL (CHLORASEPTIC ) LOZENGE MM PRN (15:52)
[2024-02-08] MEDS ORDERED: NALOXONE HCL (KLOXXADO) 8 MG SPRAY NS PRN (15:56)
[2024-02-08] MEDS ORDERED: metFORMIN HCL 500 MG TABLET (FP) PO SCH (16:30)
[2024-02-08] MEDS: PRENATAL VITAMINS W/ FOLIC ACID TABLET (FP) PO SCH (17:01)
[2024-02-08] MEDS: NICOTINE 7 MG/24 HOURS TOPICAL PATCH TD SCH (17:01)
[2024-02-08] MEDS ORDERED: chlordiazePOXIDE HCL 25 MG CAPSULE ONE (17:08)
[2024-02-08] MEDS ORDERED: ALBUTEROL SO4 HFA INHALER IH ONE (17:09)
[2024-02-08] MEDS: ALBUTEROL SO4 HFA INHALER IH SCH (17:15)
[2024-02-08] MEDS: chlordiazePOXIDE HCL 25 MG CAPSULE PO SCH (17:16)
[2024-02-08] MEDS: metFORMIN HCL 500 MG TABLET (FP) PO SCH (18:17)
[2024-02-08] MEDS: ATORVASTATIN CA 20 MG TABLET (FP) PO SCH (22:22)
[2024-02-08] MEDS: THIAMINE 100 MG TABLET PO SCH (22:22)
[2024-02-08] MEDS: MELATONIN 5 MG TABLETS PO SCH (22:23)
[2024-02-09] MEDS: LOPERAMIDE HCL 2 MG CAPSULE PO PRN (05:55)
[2024-02-09] MEDS: LISINOPRIL 20 MG TABLET PO SCH (09:42)
[2024-02-09] MEDS: hydrOXYzine PAMOATE 25 MG CAPSULE (FP) PO PRN (09:42)
[2024-02-09] MEDS: amLODIPine BESYLATE 10 MG TABLET (FP) PO SCH (09:42)
[2024-02-09] MEDS: HYDROCHLOROTHIAZIDE 25 MG TABLET (FP) PO SCH (09:42)
[2024-02-09] MEDS: GABAPENTIN 100 MG CAPSULE PO SCH (09:42)
[2024-02-09] MEDS: ASPIRIN COATED 81 MG TABLET.EC PO SCH (09:42)
[2024-02-09] MEDS: METHOCARBAMOL 500 MG TABLET PO PRN (09:43)
[2024-02-09 11:47] LABS: CHLORIDE 100 mmol/L (98-107); POTASSIUM 3.8 mmol/L (3.5-5.1); SODIUM 136 mmol/L (136-145)
[2024-02-09 11:50] LABS: ALBUMIN 3.9 g/dl (3.4-5.0); CALCIUM 9.1 mg/dL (8.5-10.1); HEMATOCRIT 39.8 % (35.4-49); HEMOGLOBIN 13.1 GM/dL (11.7-16.9); MCH 28.7 pg (25.7-33.7); MCHC 32.9 g/dl (32.0-35.9); PLATELET COUNT 389 10^3/uL (134-434); RBC 4.57 M/mm3 (4.00-5.60); RDW 14.8 % (11.9-15.9); WHITE BLOOD COUNT 8.2 K/mm3 (4.0-10.0)
[2024-02-09 11:51] LABS: ANION GAP 8 mmol/L (4-13); BLOOD UREA NITROGEN 15.6 mg/dL (7-18); CO2 28 mmol/L (21-32); GLUCOSE,RANDOM 212 mg/dL (74-106)
[2024-02-09 11:54] LABS: CREATININE 1.4 mg/dL (0.55-1.3); SGOT/AST 24 U/L (15-37); SGPT/ALT 26 U/L (13-61)
[2024-02-09 11:55] LABS: BILIRUBIN,TOTAL 0.4 mg/dL (0.2-1); TOT PROT 7.4 g/dl (6.4-8.2)
[2024-02-09 11:56] LABS: ALK PHOS 123 U/L (45-117)
[2024-02-09] MEDS: LACTULOSE 20 GM/30 ML UDC (FOR ORAL USE ONLY) PO SCH (13:34)
[2024-02-09] MEDS: traZODone HCL 100 MG TABLET (FP) PO SCH (22:30)
[2024-02-10] MEDS: chlordiazePOXIDE HCL 25 MG CAPSULE PO SCH (05:37)
[2024-02-10 14:34] LABS: CREATININE 1.2 mg/dL (0.55-1.3)
[2024-02-11] MEDS ORDERED: chlordiazePOXIDE HCL 10 MG CAPSULE PO PRN
[2024-02-11] MEDS: chlordiazePOXIDE HCL 10 MG CAPSULE PO SCH (05:41)
[2024-02-11] MEDS: INSULIN ASPART SLIDING SCALE (NOVOLOG) 1 VIAL SQ SCH (16:36)
[2024-02-11] MEDS ORDERED: INSULIN (NOVOLOG) ASPART 100 UNITS/ML 10ML VIAL ONE (22:30)
[2024-02-11] MEDS: MAG HYDROX/AL HYDROX/SIMETH 30 ML UNIT-DOSE CUP PO PRN (22:46)
[2024-02-12] MEDS: chlordiazePOXIDE HCL 10 MG CAPSULE PO SCH (05:45)
[2024-02-12] MEDS: IBUPROFEN 600 MG TABLET (FP) PO PRN (05:51)
[2024-02-12] MEDS ORDERED: INSULIN (NOVOLOG) ASPART 100 UNITS/ML 10ML VIAL ONE (16:49)
[2024-02-12] MEDS ORDERED: ALBUTEROL SO4 HFA INHALER IH PRN (19:08)
[2024-02-12] MEDS: cloNIDine HCL 0.1 MG TABLET PO PRN (22:32)
[2024-02-12] MEDS: ACAMPROSATE CALCIUM 333 MG TABLET.DR PO SCH (22:32)
[2024-02-13] MEDS: chlordiazePOXIDE HCL 10 MG CAPSULE PO ONE (05:36)
[2024-02-13] MEDS ORDERED: INSULIN (NOVOLOG) ASPART 100 UNITS/ML 10ML VIAL ONE (06:17)
[2024-02-13] MEDS: metFORMIN HCL 500 MG TABLET (FP) PO SCH (06:21)
[2024-02-13 06:22] VITALS: TEMP 98.2
[2024-02-13 08:58] VITALS: BP 131/77; PULSE 80; RESP 18
== END 2024-02-13 09:25 | disposition other institution (70) | DRG 773 ==
LOC: YASAS 14:08 → Y6N 17:00
PROVIDERS: ADMIT Allergy & Immunology; ATTEND Surgery
PROC: HZ2ZZZZ Detoxification Services for Substance Abuse Treatment (ICD-10-PCS; principal; 2024-02-08)
DX: F10.230 Alcohol dependence with withdrawal, uncomplicated (principal); F13.230 Sedative, hypnotic or anxiolytic dependence with withdrawal, uncomplicated; F11.10 Opioid abuse, uncomplicated; F14.20 Cocaine dependence, uncomplicated; F12.20 Cannabis dependence, uncomplicated; F19.282 Other psychoactive substance dependence with psychoactive substance-induced sleep disorder; F19.280 Other psychoactive substance dependence with psychoactive substance-induced anxiety disorder; F19.24 Other psychoactive substance dependence with psychoactive substance-induced mood disorder; F17.210 Nicotine dependence, cigarettes, uncomplicated; E78.5 Hyperlipidemia, unspecified; I25.10 Atherosclerotic heart disease of native coronary artery without angina pectoris; I10 Essential (primary) hypertension; E11.9 Type 2 diabetes mellitus without complications; Z79.84 Long term (current) use of oral hypoglycemic drugs; Z86.19 Personal history of other infectious and parasitic diseases
CPT/HCPCS: 36415; 80053; 80305; 80307; 82140; 82565; 82962; 83036; 84520; 85027; 86593; 86780; 93005; 93010

== ENCOUNTER 2024-03-27 13:48 | Inpatient (IN) | payer OTHER ==
[2024-03-27 14:54] VITALS: BMI 57.4
[2024-03-27] MEDS ORDERED: ALBUTEROL SO4 HFA INHALER IH PRN (16:42)
[2024-03-27] MEDS ORDERED: BENZOCAINE/MENTHOL (CHLORASEPTIC ) LOZENGE MM PRN (17:00)
[2024-03-27] MEDS ORDERED: IBUPROFEN 400 MG TABLET (FP) PO PRN (17:00)
[2024-03-27] MEDS ORDERED: NALOXONE HCL 0.4 MG/ML VIAL IM PRN (17:00)
[2024-03-27] MEDS ORDERED: DICYCLOMINE HCL 10 MG CAPSULE PO PRN (17:00)
[2024-03-27] MEDS ORDERED: POLYETHYLENE GLYCOL (HEALTHYLAX) 3350 17 GM PACKET PO PRN (17:00)
[2024-03-27] MEDS ORDERED: BISMUTH SUBSALICYLATE 524 MG/30 ML PO PRN (17:00)
[2024-03-27] MEDS ORDERED: ONDANSETRON *ODT* 4 MG TABLET SL PRN (17:00)
[2024-03-27] MEDS ORDERED: METHOCARBAMOL 500 MG TABLET PO PRN (17:00)
[2024-03-27] MEDS ORDERED: BENZONATATE 200 MG CAPSULE PO PRN (17:00)
[2024-03-27] MEDS ORDERED: IBUPROFEN 600 MG TABLET (FP) PO PRN (17:00)
[2024-03-27] MEDS ORDERED: MAGNESIUM HYDROX 2400MG/30ML ORAL SUSPENSION 30 ML CUP PO PRN (17:00)
[2024-03-27] MEDS ORDERED: ACETAMINOPHEN 325 MG TABLET (FP) PO PRN (17:00)
[2024-03-27] MEDS ORDERED: LOPERAMIDE HCL 2 MG CAPSULE PO PRN (17:00)
[2024-03-27] MEDS ORDERED: MAG HYDROX/AL HYDROX/SIMETH 30 ML UNIT-DOSE CUP PO PRN (17:00)
[2024-03-27] MEDS ORDERED: guaiFENesin 600 MG TABLET.ER (FP) PO PRN (17:00)
[2024-03-27] MEDS ORDERED: NALOXONE (NARCAN) HCL 4 MG/0.1 ML SPRAY NS PRN (17:00)
[2024-03-27] MEDS: ASPIRIN COATED 81 MG TABLET.EC PO SCH ×2 (19:30→19:40)
[2024-03-27] MEDS: INSULIN ASPART SLIDING SCALE (NOVOLOG) 1 VIAL SQ SCH (19:33)
[2024-03-27 20:44] VITALS: BP 160/100; PULSE 90; RESP 17; TEMP 97.9
[2024-03-27] MEDS ORDERED: THIAMINE 100 MG TABLET PO SCH (22:00)
[2024-03-27] MEDS ORDERED: ATORVASTATIN CA 20 MG TABLET (FP) PO SCH (22:00)
[2024-03-27] MEDS ORDERED: MELATONIN 5 MG TABLETS PO SCH (22:00)
[2024-03-28] MEDS ORDERED: metFORMIN HCL 500 MG TABLET (FP) PO SCH (07:00)
[2024-03-28] MEDS ORDERED: LOSARTAN POTASSIUM 25 MG TABLET PO SCH (10:00)
[2024-03-28] MEDS ORDERED: GABAPENTIN 100 MG CAPSULE PO SCH (10:00)
[2024-03-28] MEDS ORDERED: PRENATAL VITAMINS W/ FOLIC ACID TABLET (FP) PO SCH (10:00)
[2024-03-28] MEDS ORDERED: HYDROCHLOROTHIAZIDE 25 MG TABLET (FP) PO SCH (10:00)
[2024-03-28] MEDS ORDERED: amLODIPine BESYLATE 10 MG TABLET (FP) PO SCH (10:00)
== END 2024-03-27 20:55 | disposition other institution (70) | DRG 774 ==
LOC: YASAS 13:48 → Y6N 18:31 → UNDODISIN 20:55
PROVIDERS: ADMIT Allergy & Immunology; ATTEND Surgery
PROC: HZ2ZZZZ Detoxification Services for Substance Abuse Treatment (ICD-10-PCS; principal; 2024-03-27)
DX: F14.20 Cocaine dependence, uncomplicated (principal); F17.210 Nicotine dependence, cigarettes, uncomplicated; I25.10 Atherosclerotic heart disease of native coronary artery without angina pectoris; I10 Essential (primary) hypertension; E78.5 Hyperlipidemia, unspecified; E11.9 Type 2 diabetes mellitus without complications; Z79.84 Long term (current) use of oral hypoglycemic drugs
CPT/HCPCS: 80305; 82962; 87811

== ENCOUNTER 2024-03-27 20:57 | Inpatient (IN) | payer OTHER ==
[2024-03-27] MEDS ORDERED: BENZOCAINE/MENTHOL (CHLORASEPTIC ) LOZENGE MM PRN (23:00)
[2024-03-27] MEDS ORDERED: IBUPROFEN 600 MG TABLET (FP) PO PRN (23:00)
[2024-03-27] MEDS ORDERED: LOPERAMIDE HCL 2 MG CAPSULE PO PRN (23:00)
[2024-03-27] MEDS ORDERED: POLYETHYLENE GLYCOL (HEALTHYLAX) 3350 17 GM PACKET PO PRN (23:00)
[2024-03-27] MEDS ORDERED: MAGNESIUM HYDROX 2400MG/30ML ORAL SUSPENSION 30 ML CUP PO PRN (23:00)
[2024-03-27] MEDS ORDERED: IBUPROFEN 400 MG TABLET (FP) PO PRN (23:00)
[2024-03-27] MEDS ORDERED: P-EPHED 60MG/TRIPROLIDI 2.5MG TABLET PO PRN (23:00)
[2024-03-27] MEDS ORDERED: MAG HYDROX/AL HYDROX/SIMETH 30 ML UNIT-DOSE CUP PO PRN (23:00)
[2024-03-27] MEDS ORDERED: guaiFENesin 600 MG TABLET.ER (FP) PO PRN (23:00)
[2024-03-27] MEDS ORDERED: BENZONATATE 200 MG CAPSULE PO PRN (23:00)
[2024-03-27] MEDS ORDERED: ALBUTEROL SO4 HFA INHALER IH PRN (23:01)
[2024-03-27] MEDS: MELATONIN 5 MG TABLETS PO SCH (23:33)
[2024-03-28] MEDS: hydrOXYzine PAMOATE 25 MG CAPSULE (FP) PO PRN (06:26)
[2024-03-28] MEDS: ACETAMINOPHEN 325 MG TABLET (FP) PO PRN (06:27)
[2024-03-28] MEDS: metFORMIN HCL 500 MG TABLET (FP) PO SCH (06:29)
[2024-03-28] MEDS: PRENATAL VITAMINS W/ FOLIC ACID TABLET (FP) PO SCH (10:11)
[2024-03-28] MEDS: HYDROCHLOROTHIAZIDE 25 MG TABLET (FP) PO SCH (10:11)
[2024-03-28] MEDS: GABAPENTIN 100 MG CAPSULE PO SCH (10:11)
[2024-03-28] MEDS: amLODIPine BESYLATE 10 MG TABLET (FP) PO SCH (10:12)
[2024-03-28] MEDS: LOSARTAN POTASSIUM 25 MG TABLET PO SCH (10:12)
[2024-03-28] MEDS: ASPIRIN COATED 81 MG TABLET.EC PO SCH (10:12)
[2024-03-28 12:12] LABS: HEMATOCRIT 39.7 % (35.4-49); MCH 28.7 pg (25.7-33.7); MCHC 32.8 g/dl (32.0-35.9); MEAN CELL VOLUME 87.5 fl (80-96); MEAN PLT VOLUME 9.2 fl (7.5-11.1); PLATELET COUNT 352 10^3/uL (134-434); RBC 4.54 M/mm3 (4.00-5.60); RDW 14.9 % (11.9-15.9); WHITE BLOOD COUNT 5.6 K/mm3 (4.0-10.0)
[2024-03-28 13:14] LABS: CHLORIDE 103 mmol/L (98-107); POTASSIUM 3.9 mmol/L (3.5-5.1); SODIUM 141 mmol/L (136-145)
[2024-03-28 13:21] LABS: ANION GAP 8 mmol/L (4-13); BLOOD UREA NITROGEN 16.2 mg/dL (7-18); CALCIUM 9.9 mg/dL (8.5-10.1); CO2 30 mmol/L (21-32)
[2024-03-28 13:22] LABS: ALBUMIN 3.9 g/dl (3.4-5.0); GLUCOSE,RANDOM 138 mg/dL (74-106)
[2024-03-28 13:24] LABS: CREATININE 1.4 mg/dL (0.55-1.3); SGPT/ALT 44 U/L (13-61)
[2024-03-28 13:25] LABS: SGOT/AST 38 U/L (15-37)
[2024-03-28 13:26] LABS: BILIRUBIN,TOTAL 0.5 mg/dL (0.2-1); TOT PROT 7.1 g/dl (6.4-8.2)
[2024-03-28 13:27] LABS: ALK PHOS 88 U/L (45-117)
[2024-03-28 17:38] LABS: PH,URINE 5.5 (5.0-8.0); URINE APPEARANCE CLEAR; URINE BILIRUBIN NEGATIVE (NEGATIVE); URINE COLOR YELLOW; URINE GLUCOSE (UA) NEGATIVE (NEGATIVE); URINE KETONE NEGATIVE (NEGATIVE); URINE LEUK ESTERASE NEGATIVE (NEGATIVE); URINE NITRITE NEGATIVE (NEGATIVE); URINE PROTEIN NEGATIVE (NEGATIVE); URINE UROBILINOGEN 0.2 mg/dL (0.2-1.0)
[2024-03-28] MEDS: THIAMINE 100 MG TABLET PO SCH (21:04)
[2024-03-28] MEDS: ATORVASTATIN CA 20 MG TABLET (FP) PO SCH (21:04)
[2024-03-29] MEDS: cloNIDine HCL 0.1 MG TABLET PO ONE (06:38)
[2024-03-29] MEDS: LOSARTAN POTASSIUM 50 MG TABLET PO SCH (14:47)
[2024-03-30] MEDS: cloNIDine HCL 0.1 MG TABLET PO PRN (06:01)
[2024-03-30] MEDS: traZODone HCL 50 MG TABLET (FP) PO SCH (21:09)
[2024-04-03] MEDS: LOSARTAN POTASSIUM 50 MG TABLET PO SCH (10:11)
[2024-04-05] MEDS: HEPATITIS A VIRUS VACCINE/PF 1440 UNIT/1 ML IM ONE (15:50)
[2024-04-10] MEDS: HEPATITIS A VIRUS VACCINE/PF 1440 UNIT/1 ML IM ONE (10:19)
[2024-04-15] MEDS: LIDOCAINE 4% PATCH TP SCH (10:25)
[2024-04-15] MEDS: LIDOCAINE PATCH REMOVAL MC SCH (21:46)
[2024-04-16] MEDS ORDERED: METHOCARBAMOL 500 MG TABLET PO PRN (11:59)
[2024-04-16] MEDS: BACLOFEN 10 MG TABLET (FP) PO SCH (15:21)
[2024-04-20] MEDS ORDERED: NALOXONE (NYS OPIOID OVERDOSE PROGRAM) 4 MG/0.1 ML SPRAY NS ONE (13:00)
[2024-04-20] MEDS ORDERED: NALOXONE (NYS OPIOID OVERDOSE PROGRAM) 4 MG/0.1 ML SPRAY NS PRN ×2 (14:11→14:44)
[2024-04-24 06:31] VITALS: TEMP 97.3
[2024-04-24 09:14] VITALS: BP 124/69; PULSE 73; RESP 17
== END 2024-04-24 09:50 | disposition home or self-care (01) | DRG 772 ==
LOC: YASAS 20:57 → Y3W 20:58
PROVIDERS: ADMIT Psychiatry & Neurology Pain Medicine; ATTEND Psychiatry & Neurology Pain Medicine
PROC: HZ42ZZZ Group Counseling for Substance Abuse Treatment, Cognitive-Behavioral (ICD-10-PCS; principal; 2024-03-27)
DX: F14.20 Cocaine dependence, uncomplicated (principal); F17.210 Nicotine dependence, cigarettes, uncomplicated; F19.282 Other psychoactive substance dependence with psychoactive substance-induced sleep disorder; F19.280 Other psychoactive substance dependence with psychoactive substance-induced anxiety disorder; F19.24 Other psychoactive substance dependence with psychoactive substance-induced mood disorder; I25.10 Atherosclerotic heart disease of native coronary artery without angina pectoris; I10 Essential (primary) hypertension; E78.5 Hyperlipidemia, unspecified; E11.9 Type 2 diabetes mellitus without complications; Z79.84 Long term (current) use of oral hypoglycemic drugs; M54.50 Low back pain, unspecified; G89.29 Other chronic pain; E66.01 Morbid (severe) obesity due to excess calories; Z68.43 Body mass index [BMI] 50.0-59.9, adult
CPT/HCPCS: 36415; 80053; 81003; 82962; 85027; 90632; J0475

== ENCOUNTER 2024-06-30 11:30 | Inpatient (IN) | payer OTHER ==
[2024-06-30 11:51] VITALS: BMI 52.6
[2024-06-30] MEDS ORDERED: diazePAM 5 MG TABLET PO PRN (12:58)
[2024-06-30] MEDS: ALBUTEROL SO4 HFA INHALER IH SCH (14:50)
[2024-06-30] MEDS ORDERED: LOSARTAN POTASSIUM 50 MG TABLET PO ONE (15:45)
[2024-06-30] MEDS: amLODIPine BESYLATE 10 MG TABLET (FP) PO ONE (15:56)
[2024-06-30] MEDS: LOSARTAN POTASSIUM 50 MG TABLET PO ONE (15:56)
[2024-06-30] MEDS: metFORMIN HCL 500 MG TABLET (FP) PO SCH (17:22)
[2024-06-30] MEDS: diazePAM 5 MG TABLET PO SCH (17:22)
[2024-06-30] MEDS: traZODone HCL 100 MG TABLET (FP) PO SCH (22:26)
[2024-06-30] MEDS: ATORVASTATIN CA 20 MG TABLET (FP) PO SCH (22:26)
[2024-06-30] MEDS: ACAMPROSATE CALCIUM 333 MG TABLET.DR PO SCH (22:27)
[2024-06-30] MEDS ORDERED: ONDANSETRON *ODT* 4 MG TABLET SL PRN (23:26)
[2024-06-30] MEDS ORDERED: IBUPROFEN 400 MG TABLET (FP) PO PRN (23:26)
[2024-06-30] MEDS ORDERED: DICYCLOMINE HCL 10 MG CAPSULE PO PRN (23:26)
[2024-06-30] MEDS ORDERED: POLYETHYLENE GLYCOL (HEALTHYLAX) 3350 17 GM PACKET PO PRN (23:26)
[2024-06-30] MEDS ORDERED: MAGNESIUM HYDROX 2400MG/30ML ORAL SUSPENSION 30 ML CUP PO PRN (23:26)
[2024-06-30] MEDS ORDERED: MAG HYDROX/AL HYDROX/SIMETH 30 ML UNIT-DOSE CUP PO PRN (23:26)
[2024-06-30] MEDS ORDERED: hydrOXYzine PAMOATE 25 MG CAPSULE (FP) PO PRN (23:26)
[2024-07-01] MEDS: BENZOCAINE/MENTHOL (CHLORASEPTIC ) LOZENGE MM PRN (05:37)
[2024-07-01] MEDS: guaiFENesin 600 MG TABLET.ER (FP) PO PRN (05:39)
[2024-07-01] MEDS: ACETAMINOPHEN 325 MG TABLET (FP) PO PRN (05:40)
[2024-07-01] MEDS: HYDROCHLOROTHIAZIDE 25 MG TABLET (FP) PO SCH (10:16)
[2024-07-01] MEDS: LISINOPRIL 20 MG TABLET PO SCH (10:16)
[2024-07-01] MEDS: PRENATAL VITAMINS W/ FOLIC ACID TABLET (FP) PO SCH (10:16)
[2024-07-01] MEDS: ASPIRIN COATED 81 MG TABLET.EC PO SCH (10:17)
[2024-07-01] MEDS: LOSARTAN POTASSIUM 50 MG TABLET PO SCH (10:17)
[2024-07-01] MEDS: GABAPENTIN 100 MG CAPSULE PO SCH (10:17)
[2024-07-01] MEDS: amLODIPine BESYLATE 10 MG TABLET (FP) PO SCH (10:17)
[2024-07-01] MEDS: BISMUTH SUBSALICYLATE 524 MG/30 ML PO PRN (10:21)
[2024-07-01] MEDS ORDERED: chlordiazePOXIDE HCL 25 MG CAPSULE PO PRN (15:51)
[2024-07-01] MEDS: BENZONATATE 200 MG CAPSULE PO PRN (17:16)
[2024-07-01] MEDS: chlordiazePOXIDE HCL 25 MG CAPSULE PO SCH (17:16)
[2024-07-01] MEDS: LOPERAMIDE HCL 2 MG CAPSULE PO PRN (17:17)
[2024-07-01] MEDS: P-EPHED 60MG/TRIPROLIDI 2.5MG TABLET PO PRN (20:07)
[2024-07-01] MEDS: MELATONIN 5 MG TABLETS PO SCH (22:22)
[2024-07-01] MEDS: THIAMINE 100 MG TABLET PO SCH (22:23)
[2024-07-01] MEDS: METHOCARBAMOL 500 MG TABLET PO PRN (22:24)
[2024-07-01] MEDS: IBUPROFEN 600 MG TABLET (FP) PO PRN (22:24)
[2024-07-02] MEDS: chlordiazePOXIDE HCL 25 MG CAPSULE PO SCH (05:24)
[2024-07-02] MEDS ORDERED: diazePAM 5 MG TABLET PO SCH (06:00)
[2024-07-02] MEDS: AMOXICILLIN 500 MG CAPSULE (FP) PO SCH (14:08)
[2024-07-03] MEDS: chlordiazePOXIDE HCL 10 MG CAPSULE PO SCH (05:30)
[2024-07-03] MEDS ORDERED: diazePAM 5 MG TABLET PO SCH (06:00)
[2024-07-04] MEDS: chlordiazePOXIDE HCL 10 MG CAPSULE PO SCH (05:49)
[2024-07-04] MEDS ORDERED: diazePAM 5 MG TABLET PO ONE (06:00)
[2024-07-05] MEDS: chlordiazePOXIDE HCL 10 MG CAPSULE PO ONE (06:55)
[2024-07-05] MEDS ORDERED: NALOXONE (NYS OPIOID OVERDOSE PROGRAM) 4 MG/0.1 ML SPRAY NS PRN (08:00)
[2024-07-05] MEDS ORDERED: ALBUTEROL SO4 HFA INHALER IH PRN (15:26)
[2024-07-06] MEDS: cloNIDine HCL 0.1 MG TABLET PO ONE (14:18)
[2024-07-08] MEDS: METOPROLOL TARTRATE 25 MG TABLET (FP) PO ONE (17:52)
[2024-07-08] MEDS: GABAPENTIN 100 MG CAPSULE PO SCH (22:10)
[2024-07-09] MEDS ORDERED: NALOXONE (NYS OPIOID OVERDOSE PROGRAM) 4 MG/0.1 ML SPRAY NS SCH (13:30)
[2024-07-09 16:58] VITALS: BP 156/72; PULSE 87; RESP 20; TEMP 98
== END 2024-07-09 18:22 | disposition other institution (70) | DRG 774 ==
LOC: YASAS 11:30 → Y3N 13:53
PROVIDERS: ADMIT Allergy & Immunology; ATTEND Surgery
PROC: HZ2ZZZZ Detoxification Services for Substance Abuse Treatment (ICD-10-PCS; principal; 2024-06-30)
DX: F10.230 Alcohol dependence with withdrawal, uncomplicated (principal); F14.20 Cocaine dependence, uncomplicated; F17.210 Nicotine dependence, cigarettes, uncomplicated; F19.282 Other psychoactive substance dependence with psychoactive substance-induced sleep disorder; U07.1 COVID-19; E78.5 Hyperlipidemia, unspecified; I25.10 Atherosclerotic heart disease of native coronary artery without angina pectoris; I10 Essential (primary) hypertension; E11.9 Type 2 diabetes mellitus without complications; Z79.84 Long term (current) use of oral hypoglycemic drugs; M54.50 Low back pain, unspecified; G89.29 Other chronic pain; Z59.00 Homelessness unspecified
CPT/HCPCS: 0241U-QW; 82962; 87635; 93005; 93010

== ENCOUNTER 2024-07-09 18:05 | Inpatient (IN) | payer OTHER ==
[2024-07-09] MEDS ORDERED: guaiFENesin 600 MG TABLET.ER (FP) PO PRN (18:20)
[2024-07-09] MEDS ORDERED: MAG HYDROX/AL HYDROX/SIMETH 30 ML UNIT-DOSE CUP PO PRN (18:20)
[2024-07-09] MEDS ORDERED: BISACODYL 5 MG TABLET.DR (FP) PO PRN (18:20)
[2024-07-09] MEDS ORDERED: NALOXONE (NARCAN) HCL 4 MG/0.1 ML SPRAY NS PRN (18:20)
[2024-07-09] MEDS ORDERED: NALOXONE HCL 0.4 MG/ML VIAL IVPUSH PRN (18:20)
[2024-07-09] MEDS ORDERED: NICOTINE POLACRILEX 2 MG LOZENGE BC PRN (18:20)
[2024-07-09] MEDS ORDERED: POLYETHYLENE GLYCOL (HEALTHYLAX) 3350 17 GM PACKET PO PRN (18:20)
[2024-07-09] MEDS ORDERED: DOCUSATE SODIUM 100 MG CAPSULE (FP) PO PRN (18:20)
[2024-07-09] MEDS ORDERED: IBUPROFEN 400 MG TABLET (FP) PO PRN (18:20)
[2024-07-09] MEDS ORDERED: P-EPHED 60MG/TRIPROLIDI 2.5MG TABLET PO PRN (18:20)
[2024-07-09] MEDS ORDERED: MAGNESIUM HYDROX 2400MG/30ML ORAL SUSPENSION 30 ML CUP PO PRN (18:20)
[2024-07-09] MEDS ORDERED: LOPERAMIDE HCL 2 MG CAPSULE PO PRN (18:20)
[2024-07-09] MEDS ORDERED: BENZONATATE 200 MG CAPSULE PO PRN (18:20)
[2024-07-09] MEDS ORDERED: NICOTINE POLACRILEX 2 MG GUM BUC PRN (18:20)
[2024-07-09] MEDS ORDERED: ALBUTEROL SO4 HFA INHALER IH PRN (18:22)
[2024-07-09] MEDS: LIDOCAINE PATCH REMOVAL MC SCH (22:33)
[2024-07-09] MEDS: THIAMINE 100 MG TABLET PO SCH (22:33)
[2024-07-09] MEDS: traZODone HCL 100 MG TABLET (FP) PO SCH (22:33)
[2024-07-09] MEDS: ATORVASTATIN CA 20 MG TABLET (FP) PO SCH (22:33)
[2024-07-09] MEDS: IBUPROFEN 600 MG TABLET (FP) PO PRN (22:33)
[2024-07-09] MEDS: METHOCARBAMOL 500 MG TABLET PO PRN (22:33)
[2024-07-09] MEDS: MELATONIN 5 MG TABLETS PO SCH (22:34)
[2024-07-10] MEDS: metFORMIN HCL 500 MG TABLET (FP) PO SCH (07:08)
[2024-07-10] MEDS: PRENATAL VITAMINS W/ FOLIC ACID TABLET (FP) PO SCH (10:56)
[2024-07-10] MEDS: amLODIPine BESYLATE 10 MG TABLET (FP) PO SCH (10:56)
[2024-07-10] MEDS: LISINOPRIL 20 MG TABLET PO SCH (10:56)
[2024-07-10] MEDS: GABAPENTIN 100 MG CAPSULE PO SCH (10:56)
[2024-07-10] MEDS: LIDOCAINE 4% PATCH TP SCH (10:56)
[2024-07-10] MEDS: ASPIRIN COATED 81 MG TABLET.EC PO SCH (10:57)
[2024-07-10] MEDS: HYDROCHLOROTHIAZIDE 25 MG TABLET (FP) PO SCH (10:57)
[2024-07-10] MEDS: LOSARTAN POTASSIUM 50 MG TABLET PO SCH (10:57)
[2024-07-10] MEDS: ACETAMINOPHEN 325 MG TABLET (FP) PO PRN (16:51)
[2024-07-15] MEDS: hydrOXYzine PAMOATE 25 MG CAPSULE (FP) PO PRN (21:25)
[2024-07-16] MEDS: BENZOCAINE/MENTHOL (CHLORASEPTIC ) LOZENGE MM PRN (10:05)
[2024-07-27 06:36] VITALS: RESP 18
[2024-07-31 07:00] VITALS: TEMP 98
[2024-07-31 09:45] VITALS: BP 155/71; PULSE 86
[2024-07-31] MEDS: NALOXONE (NYS OPIOID OVERDOSE PROGRAM) 4 MG/0.1 ML SPRAY NS SCH (09:57)
== END 2024-07-31 10:00 | disposition home or self-care (01) | DRG 772 ==
LOC: YASAS 18:05 → Y3NR 18:07 → Y5N 07-16 14:11
PROVIDERS: ADMIT Psychiatry & Neurology Pain Medicine; ATTEND Psychiatry & Neurology Pain Medicine
PROC: HZ42ZZZ Group Counseling for Substance Abuse Treatment, Cognitive-Behavioral (ICD-10-PCS; principal; 2024-07-09)
DX: F11.20 Opioid dependence, uncomplicated (principal); F10.20 Alcohol dependence, uncomplicated; F14.20 Cocaine dependence, uncomplicated; F17.210 Nicotine dependence, cigarettes, uncomplicated; F19.282 Other psychoactive substance dependence with psychoactive substance-induced sleep disorder; F19.280 Other psychoactive substance dependence with psychoactive substance-induced anxiety disorder; F19.24 Other psychoactive substance dependence with psychoactive substance-induced mood disorder; F41.9 Anxiety disorder, unspecified; F32.A Depression, unspecified; I25.10 Atherosclerotic heart disease of native coronary artery without angina pectoris; I10 Essential (primary) hypertension; J45.909 Unspecified asthma, uncomplicated; E78.5 Hyperlipidemia, unspecified; E11.9 Type 2 diabetes mellitus without complications; Z79.84 Long term (current) use of oral hypoglycemic drugs; M54.50 Low back pain, unspecified; G89.29 Other chronic pain; Z59.00 Homelessness unspecified
CPT/HCPCS: 0241U-QW; 82962; 93005; 93010

== ENCOUNTER 2024-10-22 13:10 | Inpatient (IN) | payer OTHER ==
[2024-10-22] MEDS ORDERED: guaiFENesin 600 MG TABLET.ER (FP) PO PRN (14:04)
[2024-10-22] MEDS ORDERED: LOPERAMIDE HCL 2 MG CAPSULE PO PRN (14:04)
[2024-10-22] MEDS ORDERED: POLYETHYLENE GLYCOL (HEALTHYLAX) 3350 17 GM PACKET PO PRN (14:04)
[2024-10-22] MEDS ORDERED: IBUPROFEN 400 MG TABLET (FP) PO PRN (14:04)
[2024-10-22] MEDS ORDERED: DICYCLOMINE HCL 10 MG CAPSULE PO PRN (14:04)
[2024-10-22] MEDS ORDERED: NICOTINE POLACRILEX 2 MG LOZENGE BC PRN (14:04)
[2024-10-22] MEDS ORDERED: ONDANSETRON *ODT* 4 MG TABLET SL PRN (14:04)
[2024-10-22] MEDS ORDERED: NALOXONE (NARCAN) HCL 4 MG/0.1 ML SPRAY NS PRN (14:04)
[2024-10-22] MEDS ORDERED: ACETAMINOPHEN 325 MG TABLET (FP) PO PRN (14:04)
[2024-10-22] MEDS ORDERED: BISMUTH SUBSALICYLATE 524 MG/30 ML PO PRN (14:04)
[2024-10-22] MEDS ORDERED: MAGNESIUM HYDROX 2400MG/30ML ORAL SUSPENSION 30 ML CUP PO PRN (14:04)
[2024-10-22] MEDS ORDERED: BENZONATATE 200 MG CAPSULE PO PRN (14:04)
[2024-10-22] MEDS ORDERED: NICOTINE POLACRILEX 2 MG GUM BUC PRN (14:04)
[2024-10-22 14:16] VITALS: BMI 54.9
[2024-10-22] MEDS: metFORMIN HCL 500 MG TABLET (FP) PO SCH (16:52)
[2024-10-22] MEDS: ALBUTEROL SO4 HFA INHALER IH SCH (17:51)
[2024-10-22] MEDS: chlordiazePOXIDE HCL 25 MG CAPSULE PO SCH (17:52)
[2024-10-22] MEDS: MAG HYDROX/AL HYDROX/SIMETH 30 ML UNIT-DOSE CUP PO PRN (17:53)
[2024-10-22] MEDS: BACLOFEN 10 MG TABLET (FP) PO SCH ×2 (17:54→17:55)
[2024-10-22] MEDS: traZODone HCL 100 MG TABLET (FP) PO SCH (21:18)
[2024-10-22] MEDS ORDERED: BACLOFEN 10 MG TABLET (FP) PO SCH (22:00)
[2024-10-22] MEDS: METOPROLOL TARTRATE 50 MG TABLET (FP) PO ONE (22:18)
[2024-10-22] MEDS: MELATONIN 5 MG TABLETS PO SCH (22:18)
[2024-10-22] MEDS: THIAMINE 100 MG TABLET PO SCH (22:18)
[2024-10-22] MEDS: ATORVASTATIN CA 20 MG TABLET (FP) PO SCH (22:19)
[2024-10-22] MEDS: LIDOCAINE PATCH REMOVAL MC SCH (22:19)
[2024-10-23] MEDS: LIDOCAINE 5% TOPICAL PATCH TP SCH (10:13)
[2024-10-23] MEDS: PRENATAL VITAMINS W/ FOLIC ACID TABLET (FP) PO SCH (10:13)
[2024-10-23] MEDS: ASPIRIN COATED 81 MG TABLET.EC PO SCH (10:14)
[2024-10-23] MEDS: HYDROCHLOROTHIAZIDE 25 MG TABLET (FP) PO SCH (10:14)
[2024-10-23] MEDS: LOSARTAN POTASSIUM 50 MG TABLET PO SCH (10:15)
[2024-10-23] MEDS: LISINOPRIL 20 MG TABLET PO SCH (10:15)
[2024-10-23] MEDS: amLODIPine BESYLATE 10 MG TABLET (FP) PO SCH (10:15)
[2024-10-23] MEDS: IBUPROFEN 600 MG TABLET (FP) PO PRN (10:16)
[2024-10-23 11:48] LABS: HEMATOCRIT 39.7 % (40.1-51.0); HEMOGLOBIN 12.3 g/dL (13.7-17.5); MEAN CELL VOLUME 89.2 fl (79.0-92.2); MEAN PLT VOLUME 10.8 fl (9.4-12.4); PLATELET COUNT 360 x10^3/uL (163-337); RDW 14.2 % (12.2-16.1)
[2024-10-23 11:49] LABS: CHLORIDE 103 mmol/L (98-107); POTASSIUM 3.6 mmol/L (3.5-5.1); SODIUM 139 mmol/L (136-145)
[2024-10-23 11:51] LABS: ALBUMIN 3.6 g/dl (3.4-5.0); ANION GAP 6 mmol/L (4-13); CALCIUM 9.6 mg/dL (8.5-10.1); CO2 30 mmol/L (21-32)
[2024-10-23 11:52] LABS: BLOOD UREA NITROGEN 17.8 mg/dL (7-18); GLUCOSE,RANDOM 136 mg/dL (74-106)
[2024-10-23 11:54] LABS: SGOT/AST 14 U/L (15-37); SGPT/ALT 26 U/L (13-61)
[2024-10-23 11:55] LABS: CREATININE 1.3 mg/dL (0.55-1.3)
[2024-10-23 11:56] LABS: BILIRUBIN,TOTAL 0.4 mg/dL (0.2-1); TOT PROT 6.9 g/dl (6.4-8.2)
[2024-10-23 11:57] LABS: ALK PHOS 99 U/L (45-117)
[2024-10-23] MEDS: predniSONE 20 MG TABLET (UD) PO SCH (15:54)
[2024-10-23] MEDS: hydrOXYzine PAMOATE 25 MG CAPSULE (FP) PO PRN (20:21)
[2024-10-23] MEDS: chlordiazePOXIDE HCL 25 MG CAPSULE PO PRN (20:22)
[2024-10-23] MEDS: traZODone HCL 100 MG TABLET (FP) PO SCH (22:29)
[2024-10-24] MEDS: chlordiazePOXIDE HCL 25 MG CAPSULE PO SCH (05:55)
[2024-10-25] MEDS: chlordiazePOXIDE HCL 10 MG CAPSULE PO SCH (05:50)
[2024-10-25] MEDS: chlordiazePOXIDE HCL 10 MG CAPSULE PO PRN (13:40)
[2024-10-25] MEDS: hydrALAZINE HCL 10 MG TABLET PO ONE (23:34)
[2024-10-26] MEDS: chlordiazePOXIDE HCL 10 MG CAPSULE PO SCH (05:52)
[2024-10-26] MEDS: INSULIN ASPART SLIDING SCALE (NOVOLOG) 1 VIAL SQ SCH (11:18)
[2024-10-26 12:31] LABS: BASOPHILS # 0.08 x10^3/uL (0.01-0.08); EOSINOPHIL % 0.7 % (0.8-7.0); EOSINOPHILS # 0.11 x10^3/uL (0.04-0.54); HEMATOCRIT 40.2 % (40.1-51.0); HEMOGLOBIN 12.4 g/dL (13.7-17.5); MCHC 30.8 g/dl (32.3-36.5); MEAN CELL VOLUME 90.7 fl (79.0-92.2); MEAN PLT VOLUME 10.7 fl (9.4-12.4); MONOCYTE % 5.4 % (5.3-12.2); PLATELET COUNT 396 x10^3/uL (163-337); RDW 13.9 % (12.2-16.1)
[2024-10-26] MEDS: propRANOLol HCL 10 MG TABLET PO ONE (22:32)
[2024-10-27] MEDS: chlordiazePOXIDE HCL 10 MG CAPSULE PO ONE (05:55)
[2024-10-27] MEDS: BENZOCAINE/MENTHOL (CHLORASEPTIC ) LOZENGE MM PRN (06:10)
[2024-10-27 06:45] VITALS: RESP 17
[2024-10-27 09:17] VITALS: BP 142/87; PULSE 88; TEMP 97.7
== END 2024-10-27 11:32 | disposition other institution (70) | DRG 773 ==
LOC: YASAS 13:10 → Y6N 16:20
PROVIDERS: ADMIT Allergy & Immunology; ATTEND Allergy & Immunology
PROC: HZ2ZZZZ Detoxification Services for Substance Abuse Treatment (ICD-10-PCS; principal; 2024-10-22)
DX: F10.230 Alcohol dependence with withdrawal, uncomplicated (principal); F11.20 Opioid dependence, uncomplicated; F14.20 Cocaine dependence, uncomplicated; F17.210 Nicotine dependence, cigarettes, uncomplicated; F19.282 Other psychoactive substance dependence with psychoactive substance-induced sleep disorder; F19.24 Other psychoactive substance dependence with psychoactive substance-induced mood disorder; G51.0 Bell's palsy; I25.10 Atherosclerotic heart disease of native coronary artery without angina pectoris; I10 Essential (primary) hypertension; E11.9 Type 2 diabetes mellitus without complications; Z79.84 Long term (current) use of oral hypoglycemic drugs; M54.50 Low back pain, unspecified; G89.29 Other chronic pain
CPT/HCPCS: 36415; 80053; 80305; 80307; 82962; 83036; 85025; 85027; 86593; 86780; 87811; 93005; 93010; J0475

== ENCOUNTER 2024-10-27 11:44 | Inpatient (IN) | payer OTHER ==
[2024-10-27] MEDS ORDERED: IBUPROFEN 400 MG TABLET (FP) PO PRN (13:11)
[2024-10-27] MEDS ORDERED: METHOCARBAMOL 500 MG TABLET PO PRN (13:11)
[2024-10-27] MEDS ORDERED: MAG HYDROX/AL HYDROX/SIMETH 30 ML UNIT-DOSE CUP PO PRN (13:11)
[2024-10-27] MEDS ORDERED: LOPERAMIDE HCL 2 MG CAPSULE PO PRN (13:11)
[2024-10-27] MEDS ORDERED: guaiFENesin 600 MG TABLET.ER (FP) PO PRN (13:11)
[2024-10-27] MEDS ORDERED: BENZONATATE 200 MG CAPSULE PO PRN (13:11)
[2024-10-27] MEDS ORDERED: MAGNESIUM HYDROX 2400MG/30ML ORAL SUSPENSION 30 ML CUP PO PRN (13:11)
[2024-10-27] MEDS ORDERED: NALOXONE HCL 0.4 MG/ML VIAL IVPUSH PRN (13:11)
[2024-10-27] MEDS ORDERED: IBUPROFEN 600 MG TABLET (FP) PO PRN (13:11)
[2024-10-27] MEDS ORDERED: NALOXONE (NARCAN) HCL 4 MG/0.1 ML SPRAY NS PRN (13:11)
[2024-10-27] MEDS ORDERED: POLYETHYLENE GLYCOL (HEALTHYLAX) 3350 17 GM PACKET PO PRN (13:11)
[2024-10-27] MEDS ORDERED: ALBUTEROL SO4 HFA INHALER IH PRN (13:12)
[2024-10-27] MEDS: INSULIN ASPART SLIDING SCALE (NOVOLOG) 1 VIAL SQ SCH (16:55)
[2024-10-27] MEDS: metFORMIN HCL 500 MG TABLET (FP) PO SCH (16:57)
[2024-10-27] MEDS: LIDOCAINE PATCH REMOVAL MC SCH (21:17)
[2024-10-27] MEDS: MELATONIN 5 MG TABLETS PO SCH (21:17)
[2024-10-27] MEDS: THIAMINE 100 MG TABLET PO SCH (21:17)
[2024-10-27] MEDS: ATORVASTATIN CA 20 MG TABLET (FP) PO SCH (21:18)
[2024-10-27] MEDS: traZODone HCL 100 MG TABLET (FP) PO SCH (21:18)
[2024-10-28] MEDS: BENZOCAINE/MENTHOL (CHLORASEPTIC ) LOZENGE MM PRN (06:49)
[2024-10-28] MEDS: LOSARTAN POTASSIUM 50 MG TABLET PO SCH (09:36)
[2024-10-28] MEDS: LIDOCAINE 4% PATCH TP SCH (09:36)
[2024-10-28] MEDS: LISINOPRIL 20 MG TABLET PO SCH (09:37)
[2024-10-28] MEDS: HYDROCHLOROTHIAZIDE 25 MG TABLET (FP) PO SCH (09:37)
[2024-10-28] MEDS: GABAPENTIN 100 MG CAPSULE PO SCH (09:37)
[2024-10-28] MEDS: amLODIPine BESYLATE 10 MG TABLET (FP) PO SCH (09:37)
[2024-10-28] MEDS: ASPIRIN COATED 81 MG TABLET.EC PO SCH (09:37)
[2024-10-28] MEDS: PRENATAL VITAMINS W/ FOLIC ACID TABLET (FP) PO SCH (09:38)
[2024-10-29] MEDS ORDERED: LIDOCAINE 4% PATCH TP PRN (12:57)
[2024-10-29] MEDS: INSULIN ASPART SLIDING SCALE (NOVOLOG) 1 VIAL SQ SCH (16:53)
[2024-11-01] MEDS ORDERED: INSULIN (NOVOLOG) ASPART 100 UNITS/ML 10ML VIAL ONE ×2 (16:43→17:34)
[2024-11-01] MEDS: predniSONE 20 MG TABLET (UD) PO SCH (17:16)
[2024-11-02] MEDS ORDERED: INSULIN (NOVOLOG) ASPART 100 UNITS/ML 10ML VIAL ONE ×3 (06:44→21:33)
[2024-11-02] MEDS: GABAPENTIN 300 MG CAPSULE PO SCH (10:05)
[2024-11-03] MEDS ORDERED: INSULIN (NOVOLOG) ASPART 100 UNITS/ML 10ML VIAL ONE (06:06)
[2024-11-04] MEDS ORDERED: INSULIN (NOVOLOG) ASPART 100 UNITS/ML 10ML VIAL ONE ×2 (08:20→16:30)
[2024-11-05] MEDS ORDERED: INSULIN (NOVOLOG) ASPART 100 UNITS/ML 10ML VIAL ONE (16:47)
[2024-11-06] MEDS ORDERED: INSULIN (NOVOLOG) ASPART 100 UNITS/ML 10ML VIAL ONE (16:41)
[2024-11-07] MEDS ORDERED: INSULIN (NOVOLOG) ASPART 100 UNITS/ML 10ML VIAL ONE (16:41)
[2024-11-08] MEDS ORDERED: INSULIN (NOVOLOG) ASPART 100 UNITS/ML 10ML VIAL ONE (16:48)
[2024-11-09] MEDS ORDERED: INSULIN (NOVOLOG) ASPART 100 UNITS/ML 10ML VIAL ONE (16:59)
[2024-11-09] MEDS: BACLOFEN 10 MG TABLET (FP) PO PRN (21:11)
[2024-11-10] MEDS: ACETAMINOPHEN 325 MG TABLET (FP) PO PRN (10:00)
[2024-11-10] MEDS: AMOXICILLIN 500 MG CAPSULE (FP) PO SCH (13:14)
[2024-11-10] MEDS ORDERED: INSULIN (NOVOLOG) ASPART 100 UNITS/ML 10ML VIAL ONE ×2 (16:43→21:46)
[2024-11-11] MEDS ORDERED: INSULIN (NOVOLOG) ASPART 100 UNITS/ML 10ML VIAL ONE (16:36)
[2024-11-13] MEDS ORDERED: INSULIN (NOVOLOG) ASPART 100 UNITS/ML 10ML VIAL ONE (16:22)
[2024-11-15] MEDS: predniSONE 20 MG TABLET (UD) PO SCH (09:44)
[2024-11-15] MEDS ORDERED: predniSONE 20 MG TABLET (UD) PO SCH ×3 (10:00→16:45)
[2024-11-15] MEDS ORDERED: INSULIN (NOVOLOG) ASPART 100 UNITS/ML 10ML VIAL ONE (16:35)
[2024-11-16] MEDS: predniSONE 40 MG, predniSONE 10 MG PO SCH (09:58)
[2024-11-16] MEDS ORDERED: INSULIN (NOVOLOG) ASPART 100 UNITS/ML 10ML VIAL ONE (16:26)
[2024-11-19 09:12] VITALS: BP 134/83; PULSE 90; RESP 18; TEMP 97.8
[2024-11-20] MEDS ORDERED: predniSONE 20 MG TABLET (UD) PO SCH (10:00)
[2024-11-25] MEDS ORDERED: predniSONE 20 MG TABLET (UD) PO SCH (10:00)
[2024-11-30] MEDS ORDERED: predniSONE 20 MG TABLET (UD) PO SCH (10:00)
[2024-12-05] MEDS ORDERED: predniSONE 10 MG TABLET (UD) PO SCH (10:00)
[2024-12-10] MEDS ORDERED: predniSONE 5 MG TABLET (UD) PO SCH (10:00)
== END 2024-11-19 09:32 | disposition home or self-care (01) | DRG 772 ==
LOC: YASAS 11:44 → Y3E 11:46
PROVIDERS: ADMIT Psychiatry & Neurology Pain Medicine; ATTEND Psychiatry & Neurology Pain Medicine
PROC: HZ42ZZZ Group Counseling for Substance Abuse Treatment, Cognitive-Behavioral (ICD-10-PCS; principal; 2024-10-27)
DX: F14.20 Cocaine dependence, uncomplicated (principal); F10.20 Alcohol dependence, uncomplicated; F13.20 Sedative, hypnotic or anxiolytic dependence, uncomplicated; F17.210 Nicotine dependence, cigarettes, uncomplicated; F32.A Depression, unspecified; F19.282 Other psychoactive substance dependence with psychoactive substance-induced sleep disorder; F19.280 Other psychoactive substance dependence with psychoactive substance-induced anxiety disorder; E78.5 Hyperlipidemia, unspecified; I25.10 Atherosclerotic heart disease of native coronary artery without angina pectoris; I10 Essential (primary) hypertension; E11.9 Type 2 diabetes mellitus without complications; Z79.84 Long term (current) use of oral hypoglycemic drugs; G51.0 Bell's palsy; J06.9 Acute upper respiratory infection, unspecified; M54.50 Low back pain, unspecified; G89.29 Other chronic pain
CPT/HCPCS: 0241U-QW; 82962; J0475

== ENCOUNTER 2025-02-20 16:59 | Inpatient (IN) | payer OTHER ==
[2025-02-20 17:37] VITALS: BMI 53.1
[2025-02-20] MEDS ORDERED: BENZOCAINE/MENTHOL (CHLORASEPTIC ) LOZENGE MM PRN (17:52)
[2025-02-20] MEDS ORDERED: ONDANSETRON *ODT* 4 MG TABLET SL PRN (17:52)
[2025-02-20] MEDS ORDERED: NALOXONE (NARCAN) HCL 4 MG/0.1 ML SPRAY NS PRN (17:52)
[2025-02-20] MEDS ORDERED: POLYETHYLENE GLYCOL (HEALTHYLAX) 3350 17 GM PACKET PO PRN (17:52)
[2025-02-20] MEDS ORDERED: DICYCLOMINE HCL 10 MG CAPSULE PO PRN (17:52)
[2025-02-20] MEDS ORDERED: MAGNESIUM HYDROX 2400MG/30ML ORAL SUSPENSION 30 ML CUP PO PRN (17:52)
[2025-02-20] MEDS ORDERED: IBUPROFEN 400 MG TABLET (FP) PO PRN (17:52)
[2025-02-20] MEDS ORDERED: NICOTINE POLACRILEX 2 MG LOZENGE BC PRN (17:52)
[2025-02-20] MEDS ORDERED: guaiFENesin 600 MG TABLET.ER (FP) PO PRN (17:52)
[2025-02-20] MEDS ORDERED: MAG HYDROX/AL HYDROX/SIMETH 30 ML UNIT-DOSE CUP PO PRN (17:52)
[2025-02-20] MEDS ORDERED: NICOTINE POLACRILEX 2 MG GUM BUC PRN (17:52)
[2025-02-20] MEDS ORDERED: BENZONATATE 200 MG CAPSULE PO PRN (17:52)
[2025-02-20] MEDS: IBUPROFEN 600 MG TABLET (FP) PO PRN (19:29)
[2025-02-20] MEDS ORDERED: ALBUTEROL SO4 HFA INHALER IH PRN (20:58)
[2025-02-20] MEDS: MELATONIN 5 MG TABLETS PO SCH (21:29)
[2025-02-20] MEDS: THIAMINE 100 MG TABLET PO SCH (21:29)
[2025-02-20] MEDS: LISINOPRIL 10 MG TABLET PO SCH (21:29)
[2025-02-20] MEDS: LOSARTAN POTASSIUM 50 MG TABLET PO SCH (21:29)
[2025-02-20] MEDS: ATORVASTATIN CA 20 MG TABLET (FP) PO SCH (21:30)
[2025-02-20] MEDS: ASPIRIN COATED 81 MG TABLET.EC PO SCH (21:30)
[2025-02-20] MEDS: METHOCARBAMOL 500 MG TABLET PO PRN (21:36)
[2025-02-21] MEDS: metFORMIN HCL 500 MG TABLET (FP) PO SCH (07:00)
[2025-02-21] MEDS: PRENATAL VITAMINS W/ FOLIC ACID TABLET (FP) PO SCH (09:41)
[2025-02-21] MEDS: amLODIPine BESYLATE 10 MG TABLET (FP) PO SCH (09:41)
[2025-02-21] MEDS: HYDROCHLOROTHIAZIDE 25 MG TABLET (FP) PO SCH (09:41)
[2025-02-21] MEDS: ACETAMINOPHEN 325 MG TABLET (FP) PO PRN (09:45)
[2025-02-21 10:05] LABS: MCHC 30.5 g/dl (32.3-36.5); MEAN CELL VOLUME 90.5 fl (79.0-92.2); MEAN PLT VOLUME 10.7 fl (9.4-12.4); RDW 13.4 % (12.2-16.1)
[2025-02-21] MEDS: ZINC OXIDE 20% TOPICAL OINTMENT 30 GM TUBE TP SCH (10:47)
[2025-02-21 11:00] LABS: GLUCOSE,RANDOM 192 mg/dL (74-106)
[2025-02-21 11:01] LABS: CO2 31 mmol/L (21-32)
[2025-02-21 11:03] LABS: SGOT/AST 57 U/L (15-37); SGPT/ALT 41 U/L (13-61)
[2025-02-21 11:04] LABS: CREATININE 1.4 mg/dL (0.55-1.3)
[2025-02-21 11:05] LABS: TOT PROT 6.8 g/dl (6.4-8.2)
[2025-02-21 11:06] LABS: ALK PHOS 93 U/L (45-117)
[2025-02-21] MEDS: BISMUTH SUBSALICYLATE 524 MG/30 ML PO PRN (13:33)
[2025-02-21] MEDS: traZODone HCL 100 MG TABLET (FP) PO SCH (22:05)
[2025-02-22] MEDS: GABAPENTIN 300 MG CAPSULE PO SCH (11:50)
[2025-02-22] MEDS: LOPERAMIDE HCL 2 MG CAPSULE PO PRN (17:22)
[2025-02-23 09:24] VITALS: BP 153/83; PULSE 86; RESP 18; TEMP 97.5
[2025-02-23] MEDS ORDERED: GABAPENTIN 100 MG CAPSULE PO SCH (14:00)
== END 2025-02-23 12:00 | disposition other institution (70) | DRG 774 ==
LOC: YASAS 16:59 → Y3N 18:35
PROVIDERS: ADMIT Neuromusculoskeletal Medicine & OMM; ATTEND Allergy & Immunology
PROC: HZ2ZZZZ Detoxification Services for Substance Abuse Treatment (ICD-10-PCS; principal; 2025-02-20)
DX: F10.230 Alcohol dependence with withdrawal, uncomplicated (principal); I25.10 Atherosclerotic heart disease of native coronary artery without angina pectoris; I10 Essential (primary) hypertension; E78.5 Hyperlipidemia, unspecified; E11.9 Type 2 diabetes mellitus without complications; M54.50 Low back pain, unspecified; F17.210 Nicotine dependence, cigarettes, uncomplicated; F14.20 Cocaine dependence, uncomplicated; E66.01 Morbid (severe) obesity due to excess calories; Z68.43 Body mass index [BMI] 50.0-59.9, adult; J45.909 Unspecified asthma, uncomplicated
CPT/HCPCS: 36415; 80053; 80305; 80307; 82962; 85027; 86593; 86780

== ENCOUNTER 2025-02-23 12:02 | Inpatient (IN) | payer OTHER ==
[2025-02-23] MEDS ORDERED: guaiFENesin 600 MG TABLET.ER (FP) PO PRN (15:55)
[2025-02-23] MEDS ORDERED: MAGNESIUM HYDROX 2400MG/30ML ORAL SUSPENSION 30 ML CUP PO PRN (15:55)
[2025-02-23] MEDS ORDERED: ACETAMINOPHEN 325 MG TABLET (FP) PO PRN (15:55)
[2025-02-23] MEDS ORDERED: POLYETHYLENE GLYCOL (HEALTHYLAX) 3350 17 GM PACKET PO PRN (15:55)
[2025-02-23] MEDS ORDERED: NALOXONE HCL 0.4 MG/ML VIAL IVPUSH PRN (15:55)
[2025-02-23] MEDS ORDERED: NALOXONE (NARCAN) HCL 4 MG/0.1 ML SPRAY NS PRN (15:55)
[2025-02-23] MEDS ORDERED: BENZONATATE 200 MG CAPSULE PO PRN (15:55)
[2025-02-23] MEDS ORDERED: METHOCARBAMOL 500 MG TABLET PO PRN (15:55)
[2025-02-23] MEDS ORDERED: IBUPROFEN 400 MG TABLET (FP) PO PRN (15:55)
[2025-02-23] MEDS ORDERED: ALBUTEROL SO4 HFA INHALER IH PRN (15:56)
[2025-02-23] MEDS: IBUPROFEN 600 MG TABLET (FP) PO PRN (16:48)
[2025-02-23] MEDS: metFORMIN HCL 500 MG TABLET (FP) PO SCH (16:49)
[2025-02-23] MEDS: THIAMINE 100 MG TABLET PO SCH (21:36)
[2025-02-23] MEDS: MELATONIN 5 MG TABLETS PO SCH (21:36)
[2025-02-23] MEDS: ATORVASTATIN CA 20 MG TABLET (FP) PO SCH (21:38)
[2025-02-23] MEDS: GABAPENTIN 100 MG CAPSULE PO SCH (21:39)
[2025-02-24] MEDS: hydrOXYzine PAMOATE 25 MG CAPSULE (FP) PO PRN (05:58)
[2025-02-24] MEDS: LOSARTAN POTASSIUM 50 MG TABLET PO SCH (09:38)
[2025-02-24] MEDS: ASPIRIN COATED 81 MG TABLET.EC PO SCH (09:38)
[2025-02-24] MEDS: amLODIPine BESYLATE 10 MG TABLET (FP) PO SCH (09:38)
[2025-02-24] MEDS: LISINOPRIL 20 MG TABLET PO SCH (09:38)
[2025-02-24] MEDS: HYDROCHLOROTHIAZIDE 25 MG TABLET (FP) PO SCH (09:38)
[2025-02-24] MEDS: PRENATAL VITAMINS W/ FOLIC ACID TABLET (FP) PO SCH (09:38)
[2025-02-24] MEDS: BENZOCAINE/MENTHOL (CHLORASEPTIC ) LOZENGE MM PRN (09:40)
[2025-02-24] MEDS: traZODone HCL 100 MG TABLET (FP) PO SCH (21:53)
[2025-02-25] MEDS: GABAPENTIN 300 MG CAPSULE PO SCH (13:38)
[2025-02-25] MEDS: HYDROCHLOROTHIAZIDE 25 MG TABLET (FP) PO SCH (17:05)
[2025-02-27] MEDS: ZINC OXIDE 20% TOPICAL OINTMENT 30 GM TUBE TP PRN (10:04)
[2025-03-07] MEDS: GABAPENTIN 400 MG CAPSULE PO SCH (17:29)
[2025-03-11] MEDS: METHOCARBAMOL 500 MG TABLET PO PRN (17:06)
[2025-03-17] MEDS: MAG HYDROX/AL HYDROX/SIMETH 30 ML UNIT-DOSE CUP PO PRN (06:53)
[2025-03-18] MEDS: LOPERAMIDE HCL 2 MG CAPSULE PO PRN (06:49)
[2025-03-19 18:45] VITALS: RESP 17
[2025-03-20 07:09] VITALS: BP 104/68; PULSE 71; TEMP 97.3
== END 2025-03-20 09:22 | disposition home or self-care (01) | DRG 772 ==
LOC: YASAS 12:02 → Y3NR 12:04 → Y3E 02-25 10:47
PROVIDERS: ADMIT Psychiatry & Neurology Pain Medicine; ATTEND Psychiatry & Neurology Pain Medicine
PROC: HZ42ZZZ Group Counseling for Substance Abuse Treatment, Cognitive-Behavioral (ICD-10-PCS; principal; 2025-02-23)
DX: F11.20 Opioid dependence, uncomplicated (principal); F10.20 Alcohol dependence, uncomplicated; F14.20 Cocaine dependence, uncomplicated; F17.210 Nicotine dependence, cigarettes, uncomplicated; F19.282 Other psychoactive substance dependence with psychoactive substance-induced sleep disorder; F19.280 Other psychoactive substance dependence with psychoactive substance-induced anxiety disorder; F19.24 Other psychoactive substance dependence with psychoactive substance-induced mood disorder; G62.9 Polyneuropathy, unspecified; I25.10 Atherosclerotic heart disease of native coronary artery without angina pectoris; I10 Essential (primary) hypertension; E78.5 Hyperlipidemia, unspecified; Z79.84 Long term (current) use of oral hypoglycemic drugs; M54.50 Low back pain, unspecified; G89.29 Other chronic pain; R94.31 Abnormal electrocardiogram [ECG] [EKG]
CPT/HCPCS: 36415; 82962; 86803; 93005; 93010